=== PATIENT | male | born 1985 ===

== ENCOUNTER 2020-01-10 14:38 | Outpatient (REF) | payer MEDICARE, MEDICAID, SELFPAY ==
--- NOTE | 2020-01-10 14:46 | XR_ITS ---
EXAMINATION: XR RIBS, LEFT CLINICAL INFORMATION: Pleura diameter. COMPARISON: None TECHNIQUE: 3 views of the left ribs were obtained. Chest one view FINDINGS: CHEST: Both lungs are fairly well-expanded and clear of acute process. The heart size and pulmonary vascularity is normal. No gross bony abnormality seen. LEFT RIBS: Multiple views of left RIBS reveal no visible fracture or bony abnormality. The soft tissues are normal. On XR/XR ribs LT min 3V w CXR1V IMPRESSION: Unremarkable chest exam. Unremarkable left rib exam.
== END 2020-01-10 14:39 | disposition home or self-care (01) ==
LOC: HO.HMGCX 14:38
PROVIDERS: PCP Internal Medicine; Visit Provider Hospitalist
DX: R07.81 Pleurodynia (principal)
CPT/HCPCS: 71101

== ENCOUNTER 2020-01-18 13:34 | Outpatient (REF) | payer MEDICARE, MEDICAID, SELFPAY ==
[2020-01-18 16:43] LABS: Hematocrit 37.7 % (42-52); Hemoglobin 12.1 g/dl (14.0-18.0)
[2020-01-18 16:58] LABS: Anion Gap 11 (12-20); Blood Urea Nitrogen 9 mg/dL (9-16); Calcium 9.2 mg/dL (8.4-10.2); Carbon Dioxide 27 mmol/L (22-29); Chloride 107 mmol/L (96-108); Estimated Glomerular Filt Rate > 60; Glucose Random 90 mg/dL (60-115); Potassium 4.4 mmol/l (3.3-5.1); Sodium 141 mmol/L (135-145)
[2020-01-18 17:19] LABS: TSH reflex Free T4 < 0.01 mIU/mL (0.32-4.0)
[2020-01-18 17:51] LABS: Free T4 (Free Thyroxine) 2.94 ng/dL (0.71-1.85)
[2020-01-19 20:07] LABS: LDL Cholesterol Direct 35 mg/dL (<100)
== END 2020-01-18 13:35 | disposition home or self-care (01) ==
LOC: HO.HMGCLDS 13:34
PROVIDERS: PCP Internal Medicine; Visit Provider Internal Medicine
DX: N32.9 Bladder disorder, unspecified (principal)
CPT/HCPCS: 36415; 80048; 83721; 84439; 84443; 85014; 85018

== ENCOUNTER 2020-02-21 14:45 | Outpatient (REF) | payer MEDICARE, MEDICAID, SELFPAY ==
[2020-02-21 16:38] LABS: MANUAL DIFF FLAG NO
[2020-02-21 16:39] LABS: Basophils Percent Auto 0.2 % (0-2); Eosinophils Percent Auto 0.8 % (0-4); Hemoglobin 13.1 g/dl (14.0-18.0); Lymphocytes Absolute Auto 1.4 X10*3/uL (1.2-4.9); Lymphocytes Percent Auto 26.9 % (20-40); Mean Corpuscular HGB Conc 32.8 g/dl (31.0-36.0); Mean Corpuscular Hemoglobin 26.5 pg (27.0-33.0); Mean Platelet Volume 11.1 fL (9.4-12.4); Monocytes Absolute Auto 0.6 X10*3/uL (0.1-1.2); Monocytes Percent Auto 12.3 % (2-11); Neutrophils Percent Auto 59.8 % (45-73); Platelet Count 188 X10*3/uL (160-400); Red Blood Count 4.94 X10*6/uL (4.60-5.80); White Blood Count 5.1 X10*3/uL (4.8-10.8)
[2020-02-21 17:02] LABS: Alanine Aminotransferase 32 U/L (0-40); Alkaline Phosphatase 111 U/L (39-117); Aspartate Amino Transferase 24 U/L (5-37); Bilirubin Direct 0.4 mg/dL (0.0-0.5); Bilirubin Total 1.1 mg/dL (0.0-1.0); Total Protein 6.9 g/dL (6.5-8.0)
[2020-02-21 17:23] LABS: Free T4 (Free Thyroxine) 3.28 ng/dL (0.71-1.85); Thyroid Stimulating Hormone < 0.01 uIU/mL (0.32-4.0)
[2020-02-22 11:17] LABS: Thyroglobulin Antibodies 2 IU/mL (< or = 1)
[2020-02-22 11:41] LABS: Triiodothyronine T3 Total 759 ng/dL (76-181)
[2020-02-23 09:12] LABS: Thyroid Peroxidase Antibodies >900 IU/mL (<9)
[2020-02-24 19:58] LABS: Thyrotropin Receptor Antibody 35.94 IU/L (<=2.00)
[2020-02-25 16:13] LABS: Thyroid Stimulating Immunoglob 475 % baseline (<140)
== END 2020-02-21 14:46 | disposition home or self-care (01) ==
LOC: HO.LAB 14:45
PROVIDERS: PCP Internal Medicine; Referring Provider Internal Medicine; Visit Provider Internal Medicine Endocrinology, Diabetes & Metabolism
DX: E05.90 Thyrotoxicosis, unspecified without thyrotoxic crisis or storm (principal)
CPT/HCPCS: 36415; 80076; 83520; 84439; 84443; 84445; 84480; 85025; 86376; 86800; 99202

== ENCOUNTER 2020-03-07 14:12 | Outpatient (REF) | payer MEDICARE, MEDICAID, SELFPAY ==
--- NOTE | 2020-03-07 14:16 | US_ITS ---
EXAMINATION: US THYROID CLINICAL INFORMATION: Thyrotoxicosis, unspecified without thyrotoxic crisis or storm. COMPARISON: None TECHNIQUE: Linear transducer chacon-scale and color Doppler examination with attention to the region of the thyroid. FINDINGS: SIZE: Measurements of the thyroid lobes and nodules are given in sagittal, anteroposterior and transverse dimensions respectively. Right Thyroid Lobe: 5.93 x 2.75 x 2.15 cm, volume 18.4 mL. Parenchyma: The gland echotexture is heterogeneous. Thyroid vascularity is increased. Left Thyroid Lobe: 5.98 x 3.04 x 2.62 cm, volume 24.9 mL. Parenchyma: The gland echotexture is heterogeneous. Thyroid vascularity is increased. Isthmus: 1.17 cm in maximum AP dimension. RIGHT THYROID LOBE: No nodules. ISTHMUS: No nodules. LEFT THYROID LOBE: There is 1 nodule seen. 1. Location: Middle. Size: 2.6 x 1.7 x 1.7 cm. Nodule characteristics: Hyperechoic, smoothly marginated with intranodular flow. NODES: No lymphadenopathy is seen in the tissue surrounding the thyroid gland. US/US thyroid IMPRESSION: Heterogenous enlarged hypervascular thyroid gland. Solitary hypervascular nodule measuring 2.6 cm. Based on KATHY criteria this is suspicious and a fine-needle biopsy is recommended when thyrotoxicosis crisis has been settled down.
== END 2020-03-07 14:13 | disposition home or self-care (01) ==
LOC: HO.HMGCX 14:12
PROVIDERS: PCP Internal Medicine; Visit Provider Internal Medicine Endocrinology, Diabetes & Metabolism
DX: E05.90 Thyrotoxicosis, unspecified without thyrotoxic crisis or storm (principal)
CPT/HCPCS: 76536

== ENCOUNTER 2020-03-17 14:09 | Outpatient (REF) | payer MEDICARE, MEDICAID, SELFPAY ==
[2020-03-17 16:29] LABS: MANUAL DIFF FLAG NO
[2020-03-17 16:31] LABS: Basophils Percent Auto 0.3 % (0-2); Eosinophils Absolute Auto 0.1 X10*3/uL (0.0-0.4); Eosinophils Percent Auto 1.5 % (0-4); Hematocrit 41.7 % (42-52); Hemoglobin 13.4 g/dl (14.0-18.0); Imm Gran Abs Auto 0.01 X10*3/uL (0.00-0.03); Imm Gran Pct Auto 0.2 % (0.0-0.4); Lymphocytes Absolute Auto 1.8 X10*3/uL (1.2-4.9); Lymphocytes Percent Auto 30.3 % (20-40); Mean Corpuscular HGB Conc 32.1 g/dl (31.0-36.0); Mean Corpuscular Hemoglobin 26.6 pg (27.0-33.0); Mean Corpuscular Volume 82.7 fL (80-98); Mean Platelet Volume 11.6 fL (9.4-12.4); Monocytes Absolute Auto 0.4 X10*3/uL (0.1-1.2); Monocytes Percent Auto 6.2 % (2-11); Neutrophils Absolute Auto 3.7 X10*3/uL (2.0-8.3); Neutrophils Percent Auto 61.5 % (45-73); Platelet Count 220 X10*3/uL (160-400); Red Blood Count 5.04 X10*6/uL (4.60-5.80); Red Cell Distribution Width 14.2 % (11.0-16.0)
[2020-03-17 16:50] LABS: Alanine Aminotransferase 44 U/L (0-40); Albumin Level 4.2 g/dL (3.5-5.0); Alkaline Phosphatase 104 U/L (39-117); Aspartate Amino Transferase 28 U/L (5-37); Bilirubin Direct 0.3 mg/dL (0.0-0.5); Bilirubin Total 0.6 mg/dL (0.0-1.0); Total Protein 7.2 g/dL (6.5-8.0)
[2020-03-17 17:11] LABS: Free T4 (Free Thyroxine) 0.73 ng/dL (0.71-1.85); Thyroid Stimulating Hormone < 0.01 uIU/mL (0.32-4.0)
[2020-03-19 02:17] LABS: Triiodothyronine T3 Total 187 ng/dL (76-181)
== END 2020-03-17 14:10 | disposition home or self-care (01) ==
LOC: HO.HMGCLDS 14:09
PROVIDERS: PCP Internal Medicine; Visit Provider Internal Medicine Endocrinology, Diabetes & Metabolism
DX: E05.90 Thyrotoxicosis, unspecified without thyrotoxic crisis or storm (principal)
CPT/HCPCS: 36415; 80076; 84439; 84443; 84480; 85025

== ENCOUNTER → 2020-04-05 10:42 | Outpatient (REF) | payer MEDICARE, MEDICAID, SELFPAY ==
--- NOTE | 2020-04-05 10:42 | NM_ITS ---
EXAMINATION: THYROID UPTAKE AND SCAN CLINICAL INFORMATION: Thyrotoxicosis. COMPARISON: No previous radionuclide thyroid scan is available for comparison. Thyroid ultrasound dated 03/07/2020 is available for comparison. TECHNIQUE: Following the oral administration of 269 microcuries of I-123 sodium iodide, thyroid uptake was performed and expressed as a percentage of the administrated dose. Gamma scintillation camera images of the thyroid in the anterior and right and left anterior oblique views were obtained using a pinhole collimator following the administration of 10 mCi Tc-99m pertechnetate. FINDINGS: The uptake is 53.7% at 4 hours and 39.8% at 24 hours (Normal radioiodine uptake at 24 hours is 10% to 30%). The radioiodine uptake is moderately elevated. The 4 hour uptake measurement is significantly higher than the 24-hour uptake, and this is evidence of rapid turnover of radioiodine in the thyroid gland. The radiopertechnetate thyroid scintigram demonstrates the thyroid gland to be mildly to moderately enlarged, approximately 2 times normal in size.. There is an ovoid shaped focus of markedly diminished and almost absent activity at the junction of the middle and inferior thirds of the left lobe, and this is located somewhat laterally. No other focal abnormalities are present. The overall trapping function is markedly increased. A faint midline pyramidal lobe is visualized. A single anterior radioiodine image obtained at the time of the 24-hour uptake measurement is similar to the radio pertechnetate image. When compared to the ultrasound study dated 03/07/2020, the focal defect described above on these images in the lateral aspect of the left lobe corresponds well to the 2.6 x 1.7 x 1.7 cm nodule at this site visualized on the ultrasound exam. NM/NM thyroid w uptake IMPRESSION: 1. Mildly to moderately enlarged diffuse toxic goiter of Graves' disease. The radioiodine uptake is moderately elevated and demonstrates rapid turnover of radioiodine in the thyroid gland. 2. A solitary hypofunctioning (cold) nodule is present laterally at the junction of the middle and inferior thirds of the left thyroid lobe. This corresponds to a solid hypervascular nodule on the 03/07/2020 thyroid ultrasound and is suspicious for malignancy. Ultrasound-guided fine-needle aspirate of this nodule is recommended.
== END ==
LOC: HO.NUCMED 10:42
PROVIDERS: Visit Provider Internal Medicine Endocrinology, Diabetes & Metabolism
DX: E05.90 Thyrotoxicosis, unspecified without thyrotoxic crisis or storm (principal)
CPT/HCPCS: 78014; A9512; A9516

== ENCOUNTER 2020-04-18 09:19 | Outpatient (REF) | payer MEDICARE, MEDICAID, SELFPAY ==
[2020-04-18 11:13] LABS: MANUAL DIFF FLAG NO
[2020-04-18 11:26] LABS: Basophils Percent Auto 0.4 % (0-2); Eosinophils Absolute Auto 0.1 X10*3/uL (0.0-0.4); Eosinophils Percent Auto 1.6 % (0-4); Hematocrit 42.4 % (42-52); Hemoglobin 13.2 g/dl (14.0-18.0); Imm Gran Abs Auto 0.02 X10*3/uL (0.00-0.03); Imm Gran Pct Auto 0.4 % (0.0-0.4); Lymphocytes Absolute Auto 1.6 X10*3/uL (1.2-4.9); Lymphocytes Percent Auto 28.6 % (20-40); Mean Corpuscular HGB Conc 31.1 g/dl (31.0-36.0); Mean Corpuscular Hemoglobin 26.8 pg (27.0-33.0); Mean Platelet Volume 11.1 fL (9.4-12.4); Monocytes Absolute Auto 0.4 X10*3/uL (0.1-1.2); Monocytes Percent Auto 7.5 % (2-11); Neutrophils Absolute Auto 3.5 X10*3/uL (2.0-8.3); Neutrophils Percent Auto 61.5 % (45-73); Platelet Count 180 X10*3/uL (160-400); Red Blood Count 4.93 X10*6/uL (4.60-5.80); Red Cell Distribution Width 16.2 % (11.0-16.0); White Blood Count 5.6 X10*3/uL (4.8-10.8)
[2020-04-18 11:48] LABS: Alanine Aminotransferase 39 U/L (0-40); Albumin Level 3.9 g/dL (3.5-5.0); Alkaline Phosphatase 128 U/L (39-117); Aspartate Amino Transferase 27 U/L (5-37); Bilirubin Direct < 0.2 mg/dL (0.0-0.5); Bilirubin Total 0.3 mg/dL (0.0-1.0); Total Protein 6.9 g/dL (6.5-8.0)
[2020-04-18 12:14] LABS: Free T4 (Free Thyroxine) 0.55 ng/dL (0.71-1.85)
[2020-04-19 07:58] LABS: Triiodothyronine T3 Total 101 ng/dL (76-181)
== END 2020-04-18 09:20 | disposition home or self-care (01) ==
LOC: HO.HMGCLDS 09:19
PROVIDERS: PCP Internal Medicine; Visit Provider Internal Medicine Endocrinology, Diabetes & Metabolism
DX: E05.90 Thyrotoxicosis, unspecified without thyrotoxic crisis or storm (principal)
CPT/HCPCS: 36415; 80076; 84439; 84480; 85025

== ENCOUNTER → 2020-04-21 14:32 | Outpatient (BNVA) | payer MEDICARE, MEDICAID, SELFPAY | PROVIDERS: PCP Internal Medicine; Visit Provider Internal Medicine Endocrinology, Diabetes & Metabolism | DX: Z76.89 Persons encountering health services in other specified circumstances (principal) | CPT/HCPCS: Q3014 ==

== ENCOUNTER 2020-05-04 15:03 | Outpatient (REF) | payer MEDICARE, MEDICAID, SELFPAY ==
[2020-05-04 17:15] LABS: Free T4 (Free Thyroxine) 0.62 ng/dL (0.71-1.85); Thyroid Stimulating Hormone < 0.01 uIU/mL (0.32-4.0); Vitamin D 25-OH Total 11.6 ng/mL (>30)
[2020-05-05 03:41] LABS: Triiodothyronine T3 Total 159 ng/dL (76-181)
[2020-05-11 12:52] LABS: FT4 by Equilib. Dialysis 0.9 ng/dL (0.9-2.2)
== END 2020-05-04 15:04 | disposition home or self-care (01) ==
LOC: HO.HMGCLDS 15:03
PROVIDERS: PCP Internal Medicine; Visit Provider Internal Medicine Endocrinology, Diabetes & Metabolism
DX: E05.00 Thyrotoxicosis with diffuse goiter without thyrotoxic crisis or storm (principal)
CPT/HCPCS: 36415; 82306; 84439; 84443; 84480

== ENCOUNTER 2020-06-13 15:27 | Outpatient (REF) | payer MEDICARE, MEDICAID, SELFPAY ==
[2020-06-13 16:55] LABS: Free T4 (Free Thyroxine) 0.83 ng/dL (0.71-1.85); Thyroid Stimulating Hormone < 0.01 uIU/mL (0.32-4.0)
[2020-06-14 07:46] LABS: Triiodothyronine T3 Total 128 ng/dL (76-181)
== END 2020-06-13 15:28 | disposition home or self-care (01) ==
LOC: HO.LAB 15:27
PROVIDERS: PCP Internal Medicine; Visit Provider Internal Medicine Endocrinology, Diabetes & Metabolism
DX: E04.1 Nontoxic single thyroid nodule (principal)
CPT/HCPCS: 36415; 84439; 84443; 84480

== ENCOUNTER 2020-06-15 10:51 | Outpatient (REF) | payer MEDICARE, MEDICAID, SELFPAY ==
--- NOTE | 2020-06-15 11:20 | PM.OP ---
Brief Operative Note Date of Service: 06/15/20 Pre-op diagnosis: GRAVES DISEASE WITH A LEFT DOMINANT COLD NODULE. Post-op diagnosis: same Procedure: This procedure was explained to the patient. Alternatives, risks and benefits were discussed. Written consent was obtained. After sterile preparation of the skin, fine-needle aspiration biopsy of left thyroid nodule size 2.6 X 1.7 X 1.7 CM was performed under direct ultrasound guidance to confirm accurate needle placement. Three passes were performed with 27 gauge needles. Sample was submitted to cytology, initial cytology reading was adequate. 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 Patient tolerated procedure well. Aftercare instructions were provided. Impression: uncomplicated fine-needle aspiration biopsy of left thyroid nodule under direct ultrasound guidance. Surgeon: Berenice Garces MD FACE Anesthesia: local (LIDOCAINE 1 % 1 ML) Estimated blood loss (mL): 0 Condition: stable Disposition: same day
[2020-06-15] MEDS: Lidocaine HCl 1 % MPF 5 ML VIAL SUBCUT (11:30)
== END 2020-06-15 10:52 | disposition home or self-care (01) ==
LOC: HO.US 10:51
PROVIDERS: Visit Provider Internal Medicine Endocrinology, Diabetes & Metabolism
DX: E04.1 Nontoxic single thyroid nodule (principal)
CPT/HCPCS: 10005; 88172; 88173

== ENCOUNTER → 2020-06-29 11:40 | Outpatient (BNVA) | payer MEDICARE, MEDICAID, SELFPAY | PROVIDERS: PCP Internal Medicine; Visit Provider Internal Medicine Endocrinology, Diabetes & Metabolism | DX: Z13.89 Encounter for screening for other disorder (principal) | CPT/HCPCS: Q3014 ==

== ENCOUNTER 2020-07-12 15:00 | Outpatient (REF) | payer MEDICARE, MEDICAID, SELFPAY ==
[2020-07-12 17:28] LABS: Free T4 (Free Thyroxine) 0.44 ng/dL (0.71-1.85); Thyroid Stimulating Hormone 3.39 uIU/mL (0.32-4.0)
[2020-07-13 03:57] LABS: Triiodothyronine T3 Total 90 ng/dL (76-181)
== END 2020-07-12 15:01 | disposition home or self-care (01) ==
LOC: HO.HMGCLDS 15:00
PROVIDERS: PCP Internal Medicine; Visit Provider Internal Medicine Endocrinology, Diabetes & Metabolism
DX: E05.00 Thyrotoxicosis with diffuse goiter without thyrotoxic crisis or storm (principal)
CPT/HCPCS: 36415; 84439; 84443; 84480

== ENCOUNTER 2020-08-31 11:07 | Outpatient (REF) | payer MEDICARE, MEDICAID, SELFPAY ==
[2020-08-31 14:38] LABS: Free T4 (Free Thyroxine) 0.45 ng/dL (0.71-1.85); Thyroid Stimulating Hormone 5.82 uIU/mL (0.32-4.0)
[2020-09-01 04:57] LABS: Triiodothyronine T3 Free 2.4 pg/mL (2.3-4.2)
== END 2020-08-31 11:08 | disposition home or self-care (01) ==
LOC: HO.HMGCLDS 11:07
PROVIDERS: PCP Internal Medicine; Visit Provider Surgery
DX: E05.00 Thyrotoxicosis with diffuse goiter without thyrotoxic crisis or storm (principal)
CPT/HCPCS: 36415; 82310; 84439; 84443; 84481

== ENCOUNTER → 2020-09-08 08:24 | Outpatient (BNVA) | payer MEDICARE, MEDICAID, SELFPAY | PROVIDERS: PCP Internal Medicine; Visit Provider Internal Medicine Endocrinology, Diabetes & Metabolism | CPT/HCPCS: Q3014 ==

== ENCOUNTER 2020-11-27 12:42 | Outpatient (REF) | payer MEDICARE, MEDICAID, SELFPAY ==
[2020-11-27 14:48] LABS: Thyroid Stimulating Hormone 27.94 uIU/mL (0.32-4.0)
[2020-11-27 14:51] LABS: Albumin Level 4.3 g/dL (3.5-5.0); Calcium 8.9 mg/dL (8.4-10.2); Phosphorus 2.5 mg/dL (2.7-4.5)
[2020-11-30 10:52] LABS: PTHI 78 pg/mL (14-64)
== END 2020-11-27 12:43 | disposition home or self-care (01) ==
LOC: HO.HMGCLDS 12:42
PROVIDERS: PCP Internal Medicine; Visit Provider Internal Medicine
DX: E05.90 Thyrotoxicosis, unspecified without thyrotoxic crisis or storm (principal); E55.9 Vitamin D deficiency, unspecified
CPT/HCPCS: 36415; 82040; 82306; 82310; 83970; 84100; 84439; 84443

== ENCOUNTER → 2020-12-27 09:14 | Outpatient (BNVA) | payer MEDICARE, MEDICAID, SELFPAY | PROVIDERS: PCP Internal Medicine; Visit Provider Internal Medicine | DX: E89.0 Postprocedural hypothyroidism (principal); E55.9 Vitamin D deficiency, unspecified; E21.3 Hyperparathyroidism, unspecified | CPT/HCPCS: Q3014 ==

== ENCOUNTER 2021-03-15 13:09 | Outpatient (REF) | payer MEDICARE, MEDICAID, SELFPAY ==
[2021-03-15 16:57] LABS: Alanine Aminotransferase 22 U/L (0-40); Albumin Level 4.4 g/dL (3.5-5.0); Alkaline Phosphatase 70 U/L (39-117); Anion Gap 11 (12-20); Aspartate Amino Transferase 21 U/L (5-37); Bilirubin Total 0.5 mg/dL (0.0-1.0); Blood Urea Nitrogen 10 mg/dL (9-16); Calcium 9.4 mg/dL (8.4-10.2); Carbon Dioxide 27 mmol/L (22-29); Chloride 109 mmol/L (96-108); Estimated Glomerular Filt Rate > 60; Glucose Random 138 mg/dL (60-115); Phosphorus 2.5 mg/dL (2.7-4.5); Potassium 3.8 mmol/L (3.3-5.1); Sodium 143 mmol/L (135-145); Total Protein 7.4 g/dL (6.5-8.0)
[2021-03-15 17:17] LABS: Free T4 (Free Thyroxine) 0.86 ng/dL (0.71-1.85); Thyroid Stimulating Hormone 21.65 uIU/mL (0.32-4.0); Vitamin D 25-OH Total 24.4 ng/mL (>30)
[2021-03-16 12:21] LABS: Calcium (PTHI) 9.4 mg/dL (8.6-10.3); PTHI 39 pg/mL (14-64)
== END 2021-03-15 13:10 | disposition home or self-care (01) ==
LOC: HO.HMGCLDS 13:09
PROVIDERS: PCP Internal Medicine; Visit Provider Internal Medicine
DX: E21.3 Hyperparathyroidism, unspecified (principal); E55.9 Vitamin D deficiency, unspecified; E05.00 Thyrotoxicosis with diffuse goiter without thyrotoxic crisis or storm; E89.0 Postprocedural hypothyroidism
CPT/HCPCS: 36415; 80053; 82306; 83970; 84100; 84439; 84443

== ENCOUNTER 2021-05-21 15:10 | Outpatient (REF) | payer MEDICARE, MEDICAID, SELFPAY ==
[2021-05-21 17:42] LABS: Thyroid Stimulating Hormone 11.03 uIU/mL (0.32-4.0)
== END 2021-05-21 15:11 | disposition home or self-care (01) ==
LOC: HO.HMGCLDS 15:10
PROVIDERS: Visit Provider Internal Medicine
DX: E89.0 Postprocedural hypothyroidism (principal)
CPT/HCPCS: 36415; 84439; 84443

== ENCOUNTER → 2021-05-24 12:43 | Outpatient (BNVA) | payer MEDICARE, MEDICAID, SELFPAY | PROVIDERS: PCP Internal Medicine; Visit Provider Internal Medicine | DX: E89.0 Postprocedural hypothyroidism (principal); E55.9 Vitamin D deficiency, unspecified; E21.3 Hyperparathyroidism, unspecified | CPT/HCPCS: Q3014 ==

== ENCOUNTER 2021-08-21 10:23 | Outpatient (REF) | payer MEDICARE, MEDICAID, SELFPAY ==
[2021-08-21 12:23] LABS: Phosphorus 2.2 mg/dL (2.7-4.5)
[2021-08-21 12:29] LABS: Free T4 (Free Thyroxine) 1.23 ng/dL (0.71-1.85); Vitamin D 25-OH Total 29.8 ng/mL (>30)
[2021-08-22 15:47] LABS: Calcium (PTHI) 9.3 mg/dL (8.6-10.3); PTHI 63 pg/mL (16-77)
== END 2021-08-21 10:24 | disposition home or self-care (01) ==
LOC: HO.HMGCLDS 10:23
PROVIDERS: PCP Internal Medicine; Visit Provider Internal Medicine
DX: E03.9 Hypothyroidism, unspecified (principal); E21.3 Hyperparathyroidism, unspecified; E55.9 Vitamin D deficiency, unspecified
CPT/HCPCS: 36415; 82306; 83970; 84100; 84439; 84443

== ENCOUNTER 2021-11-15 13:04 | Outpatient (REF) | payer MEDICARE, MEDICAID, SELFPAY ==
[2021-11-15 15:29] LABS: Free T4 (Free Thyroxine) 1.17 ng/dL (0.71-1.85); Thyroid Stimulating Hormone 2.72 uIU/mL (0.32-4.0)
== END 2021-11-15 13:05 | disposition home or self-care (01) ==
LOC: HO.HMGCLDS 13:04
PROVIDERS: PCP Internal Medicine; Visit Provider Internal Medicine
DX: E03.9 Hypothyroidism, unspecified (principal)
CPT/HCPCS: 36415; 84439; 84443

== ENCOUNTER 2022-05-10 15:12 | Outpatient (REF) | payer MEDICARE, MEDICAID, SELFPAY ==
[2022-05-10 18:25] LABS: Free T4 (Free Thyroxine) 1.34 ng/dL (0.71-1.85); Thyroid Stimulating Hormone 1.11 uIU/mL (0.32-4.0)
== END 2022-05-10 15:13 | disposition home or self-care (01) ==
LOC: HO.HMGCLDS 15:12
PROVIDERS: Internal Medicine; Visit Provider Internal Medicine
DX: E03.9 Hypothyroidism, unspecified (principal)
CPT/HCPCS: 36415; 84439; 84443

== ENCOUNTER 2022-05-23 07:51 | Outpatient (REF) | payer MEDICARE, MEDICAID, SELFPAY ==
[2022-05-23 11:06] LABS: MANUAL DIFF FLAG NO
[2022-05-23 11:19] LABS: Basophils Percent Auto 0.8 % (0-2); Eosinophils Percent Auto 0.8 % (0-4); Hemoglobin 14.8 g/dl (14.0-18.0); Imm Gran Abs Auto 0.02 X10*3/uL (0.00-0.03); Imm Gran Pct Auto 0.4 % (0.0-0.4); Lymphocytes Absolute Auto 1.3 X10*3/uL (1.2-4.9); Lymphocytes Percent Auto 25.8 % (20-40); Mean Corpuscular HGB Conc 32.9 g/dl (31.0-36.0); Mean Corpuscular Hemoglobin 29.7 pg (27.0-33.0); Mean Corpuscular Volume 90.2 fL (80.0-98.0); Mean Platelet Volume 11.6 fL (9.4-12.4); Monocytes Absolute Auto 0.4 X10*3/uL (0.1-1.2); Monocytes Percent Auto 8.3 % (2-11); Neutrophils Absolute Auto 3.3 x10*3/uL (2.0-8.3); Neutrophils Percent Auto 63.9 % (45-73); Platelet Count 159 X10*3/uL (160-400); Red Blood Count 4.99 X10*6/uL (4.60-5.80); Red Cell Distribution Width 12.9 % (11.0-16.0); White Blood Count 5.2 X10*3/uL (4.8-10.8)
[2022-05-23 11:52] LABS: Alanine Aminotransferase 19 U/L (0-40); Albumin Level 4.1 g/dL (3.5-5.0); Alkaline Phosphatase 52 U/L (39-117); Anion Gap 12 (12-20); Aspartate Amino Transferase 22 U/L (5-37); Bilirubin Total 0.6 mg/dL (0.0-1.0); Blood Urea Nitrogen 11 mg/dL (9-16); Carbon Dioxide 25 mmol/L (22-29); Chloride 110 mmol/L (96-108); Cholesterol 184 mg/dL; Estimated Glomerular Filt Rate > 60; Glucose Fasting 99 mg/dL (60-99); HDL Cholesterol 30 mg/dL; LDL Cholesterol Calculated 128 mg/dl; Sodium 143 mmol/L (135-145); Total Protein 6.7 g/dL (6.5-8.0); Triglycerides 130 mg/dL
[2022-05-23 12:42] LABS: TSH reflex Free T4 2.46 uIU/mL (0.32-4.0)
== END 2022-05-23 07:52 | disposition home or self-care (01) ==
LOC: HO.HMGCLDS 07:51
PROVIDERS: PCP Internal Medicine; Visit Provider Internal Medicine
DX: E03.9 Hypothyroidism, unspecified (principal); M62.3 Immobility syndrome (paraplegic); R42 Dizziness and giddiness; K59.01 Slow transit constipation
CPT/HCPCS: 36415; 80053; 80061; 84443; 85025

== ENCOUNTER → 2022-09-02 13:36 | Outpatient (BNVA) | payer MEDICARE, MEDICAID, SELFPAY | PROVIDERS: PCP Internal Medicine; Visit Provider Internal Medicine | DX: E89.0 Postprocedural hypothyroidism (principal); Z79.899 Other long term (current) drug therapy | CPT/HCPCS: Q3014 ==

== ENCOUNTER 2022-11-05 11:47 | Outpatient (AMB) | payer MEDICARE, MEDICAID, SELFPAY ==
[2022-11-05 11:52] VITALS: BP 118/64; PULSE 80; O2SAT 96; BMI 25.6
--- NOTE | 2022-11-05 11:52 | A.OFFPC_ITS ---
Vital Signs 11/05/22 11:52 Height 5 ft 8 in Weight 168 lb 2 oz BMI 25.6 BP 118/64 Blood Pressure Location Rt brachial Position Sitting Pulse 80 Pulse Source Pulse Oximeter Pulse Oximetry (%) 96 Oxygen Delivery Method Room Air Intake Visit Reasons: Follow up Allergies No Known Allergies [No Known Allergies*] Allergy (Verified 11/05/22 11:52) Medication List - Last Reconciled 11/05/22 by Robbi Browne MD baclofen 20 mg PO QID 90 days cholecalciferol (vitamin D3) 50 mcg PO DAILY 30 days levothyroxine 150 mcg PO DAILY 30 days oxycodone-acetaminophen 10-325 mg 1 tab PO Q6H tadalafil 5 mg PO tamsulosin 0.4 mg PO DAILY Tobacco use date assessed: 11/05/22 Dental Screening Dental Screen Date: 11/05/22 Did you have a dental visit in the last 12 months?: Yes Did you have a dental problem in the last 6 months where you did not have access to dental care?: No Was dental information given to patient?: No HPI Follow up HPI Details Patient is 37 year male who underwent total thyroidectomy September of 2020 secondary to Graves disease Currently taking levothyroxine 50 mcg His labs revealed elevated PTH with normal calcium Patient has been discharged from endocrinology to primary care. Constipation: Still struggling with constipation he is taking Colace and Colace as needed He is to continue vitamin-D supplement as well Labs are needed order placed to be done today Patient is wheelchair-bound because of paraplegic condition. He is seeing urologist as well and taking medication through them for urinary problems Baclofen 10 mg q.i.d. for chronic back spasms Follow-up 4 months [facility] Medical History Anxiety, generalized Bladder disorder Constipation by delayed colonic transit Encounter for general adult medical examination with abnormal findings Graves disease Hyperparathyroidism Hyperthyroidism Hypothyroidism Postoperative hypothyroidism Swelling of both ankles Thyroid nodule, cold Vitamin D deficiency Surgical History Hx of needle biopsy Hx of total thyroidectomy Family History Father No problems noted. Mother No problems noted. Son No problems noted. Social History Housing: House Alcohol intake: current Alcohol intake frequency: does not drink Patient Tobacco Use Status: Never used Tobacco e-Cigarette/Vaping Use: Currently Using service: No Current occupational status: unemployed Cognitive needs: No Hearing needs: No Vision needs: Yes Questionnaire PHQ-9 Over the last 2 weeks, how often have you been bothered by any of the following problems? 1. Little interest or pleasure in doing things: not at all 2. Feeling down, depressed, or hopeless: several days 3. Trouble falling or staying asleep, or sleeping too much: several days 4. Feeling tired or having little energy: several days 5. Poor appetite or overeating: not at all 6. Feeling bad about yourself - or that you are a failure or have let yourself or your family down: not at all 7. Trouble concentrating on things, such as reading the newspaper or watching television: not at all 8. Moving or speaking so slowly that other people could have noticed. Or the op posite - being so fidgety or restless that you have been moving around a lot more than usual: not at all 9. Thoughts that you would be better off or of hurting yourself in some way: not at all Total score: 3 Depression Screening Interpretation: Negative 31688 - PHQ-9 Billing: Yes Source: Developed by Drs. Po Rivera, Tish Cowan, Jonathan Hahn and colleagues, with an educational ambar from [employer]. Thrive Questionnaire Date Thrive assessed: 11/05/22 I am a: Patient What is your living situation today?: I have a steady place to live Within the past 12 months, did the food you bought not last and you didn't have the money to get more?: Sometimes True Within the past 12 months, did you worry whether your food would run out before you got money to buy more?: Never true Do you have trouble paying for medicines?: No Do you have trouble getting transportation to medical appointments?: No Do you have trouble paying your heating and electricity bill?: Yes Do you have trouble taking care of your child, family member or friend?: Yes Do you have trouble with day-to-day activities such as bathing, preparing meals, shopping, managing finances, etc.?: Yes Are you currently unemployed and looking for a job?: Yes Are you interested in more education?: No Currently or been in a relationship where the following occur: no concerns reported AUDIT C Alcohol Use Questionnaire (AUDIT-C) 1. How often do you have a drink containing alcohol?: Never 3. How often do you have six or more drinks on one occasion?: Never Total Score: 0 Score Reviewed/Action Taken: Yes LUIS MIGUEL-7 AMB Questionnaire LUIS MIGUEL-7 Date LUIS MIGUEL - 7 assessed: 11/05/22 Source: Developed by Drs. Po Rivera, Tish Cowan, Jonathan Hahn and colleagues, with an educational ambar from [employer]. LUIS MIGUEL-7 Assessment Billing LUIS MIGUEL-7 Assessment Tool: pt declined-do not bill Review of Systems Const Denies chills and Denies fever(s) ENT Denies epistaxis and Denies nasal discharge Card Denies chest pain Resp Denies chest congestion, Denies cough and Denies hemoptysis GI Denies nausea Skin/Breast Denies rash Neuro Reports no additional complaints Psych Reports no additional complaints Endo Reports no additional complaints Physical exam (Primary Care) Vital Signs: Last Vital Signs Pulse 80 11/05/22 11:52 BP 118/64 11/05/22 11:52 Pulse Ox 96 11/05/22 11:52 Oxygen Delivery Method Room Air 11/05/22 11:52 BMI result Body Mass Index 25.6 Tobacco/Smoking Status: Tobacco use Status Tobacco use date assessed 11/05/22 11/05/22 11:56 Patient Tobacco Use Status Never used Tobacco 11/05/22 11:56 e-Cigarette/Vaping Use Currently Using 11/05/22 11:56 Depression Screening Interpretation: Negative Thrive Assessment: Date of Thrive Assessment Date Thrive assessed 11/05/22 11/05/22 12:11 Currently or been in a relationship where the following occur: no concerns reported Const General: cooperative, comfortable and no acute distress Orientation/consciousness: patient oriented x3 HENMT Head: Yes normocephalic Eyes General: appearance normal, both eyes and all related structures Neck Neck: Yes supple Resp Effort & Inspection: normal respiratory effort, no cough and no stridor Cardio Rhythm: regular rhythm Heart sounds: S1 normal heart sound present and S2 normal heart sound present Skin General skin exam: turgor normal Neuro Other: Patient is in wheelchair sitting comfortably no acute distress accompanied by his General: patient oriented x3 Extrem Right lower extremity: no edema Left lower extremity: no edema Assessment and Plan Assessment & Plan (1) Hypothyroidism (acquired): Code(s): E03.9 - Hypothyroidism, unspecified (2) Paraplegic immobility syndrome: Code(s): M62.3 - Immobility syndrome (paraplegic) (3) Hyperparathyroidism: Code(s): E21.3 - Hyperparathyroidism, unspecified (4) Vitamin D deficiency: Code(s): E55.9 - Vitamin D deficiency, unspecified (5) Constipation by delayed colonic transit: Code(s): K59.01 - Slow transit constipation (6) Urinary incontinence: Code(s): R32 - Unspecified urinary incontinence (7) Muscle spasm of back: Code(s): M62.830 - Muscle spasm of back Plan Patient is 37 year male who underwent total thyroidectomy September of 2020 secondary to Graves disease Currently taking levothyroxine 50 mcg His labs revealed elevated PTH with normal calcium Patient has been discharged from endocrinology to primary care. Constipation: Still struggling with constipation he is taking Colace and Colace as needed He is to continue vitamin-D supplement as well Labs are needed order placed to be done today Patient is wheelchair-bound because of paraplegic condition. He is seeing urologist as well and taking medication through them for urinary problems Baclofen 10 mg q.i.d. for chronic back spasms Follow-up 4 months Orders: Orders Comprehensive Met. Panel Today E03.9 - Hypothyroidism, unspecified, E21.3 - Hyperparathyroidism, unspecified, E55.9 - Vitamin D deficiency, unspecified, M62.3 - Immobility syndrome (paraplegic) TSH reflex Free T4 Today E03.9 - Hypothyroidism, unspecified, E21.3 - Hyperparathyroidism, unspecified, E55.9 - Vitamin D deficiency, unspecified, M62.3 - Immobility syndrome (paraplegic) Vitamin D 25-OH (D2 and D3) Today E03.9 - Hypothyroidism, unspecified, E21.3 - Hyperparathyroidism, unspecified, E55.9 - Vitamin D deficiency, unspecified, M62.3 - Immobility syndrome (paraplegic) Complete Blood Count Auto Diff Today E03.9 - Hypothyroidism, unspecified, E21.3 - Hyperparathyroidism, unspecified, E55.9 - Vitamin D deficiency, unspecified, M62.3 - Immobility syndrome (paraplegic) Coding Level of Care Code Est Pt Level 4 (72569) Diagnoses Hypothyroidism (acquired) E03.9 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 Hyperparathyroidism E21.3 Vitamin D deficiency E55.9 Constipation by delayed colonic transit K59.01 Urinary incontinence R32 Muscle spasm of back M62.830
== END 2022-11-05 12:08 | disposition home or self-care (01) ==
LOC: HO.HMGC 11:47
PROVIDERS: PCP Internal Medicine; Visit Provider Internal Medicine
DX: E03.9 Hypothyroidism, unspecified (principal); M62.3 Immobility syndrome (paraplegic); E21.3 Hyperparathyroidism, unspecified; E55.9 Vitamin D deficiency, unspecified; K59.01 Slow transit constipation; R32 Unspecified urinary incontinence; M62.830 Muscle spasm of back
CPT/HCPCS: 99214

== ENCOUNTER 2022-11-05 12:08 | Outpatient (REF) | payer MEDICARE, MEDICAID, SELFPAY ==
[2022-11-05 13:48] LABS: MANUAL DIFF FLAG NO
[2022-11-05 13:53] LABS: Basophils Percent Auto 0.5 % (0-2); Eosinophils Absolute Auto 0.1 X10*3/uL (0.0-0.4); Eosinophils Percent Auto 1.1 % (0-4); Hematocrit 44.9 % (42.0-52.0); Hemoglobin 14.9 g/dl (14.0-18.0); Imm Gran Abs Auto 0.02 X10*3/uL (0.00-0.03); Imm Gran Pct Auto 0.4 % (0.0-0.4); Lymphocytes Absolute Auto 1.7 X10*3/uL (1.2-4.9); Lymphocytes Percent Auto 29.4 % (20-40); Mean Corpuscular HGB Conc 33.2 g/dl (31.0-36.0); Mean Corpuscular Volume 90.5 fL (80.0-98.0); Mean Platelet Volume 11.6 fL (9.4-12.4); Monocytes Absolute Auto 0.4 X10*3/uL (0.1-1.2); Monocytes Percent Auto 7.3 % (2-11); Neutrophils Absolute Auto 3.4 x10*3/uL (2.0-8.3); Neutrophils Percent Auto 61.3 % (45-73); Platelet Count 168 X10*3/uL (160-400); Red Blood Count 4.96 X10*6/uL (4.60-5.80); Red Cell Distribution Width 12.5 % (11.0-16.0); White Blood Count 5.6 X10*3/uL (4.8-10.8)
[2022-11-05 14:27] LABS: Alanine Aminotransferase 16 U/L (0-40); Albumin Level 4.2 g/dL (3.5-5.0); Alkaline Phosphatase 54 U/L (39-117); Anion Gap 8 (12-20); Aspartate Amino Transferase 18 U/L (5-37); Bilirubin Total 0.7 mg/dL (0.0-1.0); Blood Urea Nitrogen 11 mg/dL (9-16); Carbon Dioxide 27 mmol/L (22-29); Chloride 109 mmol/L (96-108); Estimated Glomerular Filt Rate > 60; Glucose Random 84 mg/dL (60-115); Potassium 3.8 mmol/L (3.3-5.1); Sodium 140 mmol/L (135-145); Total Protein 7.2 g/dL (6.5-8.0)
[2022-11-05 15:03] LABS: TSH reflex Free T4 0.82 uIU/mL (0.32-4.0)
[2022-11-09 14:08] LABS: Vitamin D 25-OH, D2 <4 ng/mL; Vitamin D 25-OH, D3 31 ng/mL; Vitamin D 25-OH, Total 31 ng/mL (30-100)
== END 2022-11-05 12:09 | disposition home or self-care (01) ==
LOC: HO.HMGCLDS 12:08
PROVIDERS: PCP Internal Medicine; Visit Provider Internal Medicine
DX: E03.9 Hypothyroidism, unspecified (principal); E21.3 Hyperparathyroidism, unspecified; M62.3 Immobility syndrome (paraplegic); E55.9 Vitamin D deficiency, unspecified
CPT/HCPCS: 36415; 80053; 82306; 84443; 85025

== ENCOUNTER 2023-02-26 14:05 | Outpatient (AMB) | payer MEDICARE, MEDICAID, SELFPAY ==
[2023-02-26 14:20] VITALS: BP 112/72; PULSE 72; O2SAT 96
--- NOTE | 2023-02-26 14:20 | A.OFFPC_ITS ---
Vital Signs 02/26/23 14:20 Height 5 ft 8 in BMI Reason not done Patient refused/unable BP 112/72 Blood Pressure Location Rt brachial Position Sitting Pulse 72 Pulse Source Pulse Oximeter Pulse Oximetry (%) 96 Oxygen Delivery Method Room Air Intake Visit Reasons: 4 month Follow up- needs PHQ9 Allergies No Known Allergies [No Known Allergies*] Allergy (Verified 02/26/23 14:21) Medication List - Last Reconciled 02/26/23 by Robbi Browne MD baclofen 20 mg PO QID 90 days cholecalciferol (vitamin D3) 50 mcg PO DAILY 30 days levothyroxine 150 mcg PO DAILY 30 days oxycodone-acetaminophen 10-325 mg 1 tab PO Q6H tadalafil 5 mg PO tamsulosin 0.4 mg PO DAILY Tobacco use date assessed: 02/26/23 Dental Screening Dental Screen Date: 02/26/23 Did you have a dental visit in the last 12 months?: Yes Did you have a dental problem in the last 6 months where you did not have access to dental care?: No Was dental information given to patient?: Patient has dentist HPI 4 month Follow up- needs PHQ9 HPI Details Patient is 37 year male who is wheelchair-bound because of paraplegia Patient is in need of electric wheelchair, I have placed a referral for him to see a facility rehab director for assistance Patient underwent total thyroidectomy September of 2020 secondary to Graves disease Currently taking levothyroxine 50 mcg His labs revealed elevated PTH with normal calcium Patient has been discharged from endocrinology to primary care. Constipation: Still struggling with constipation he is taking Colace and Colace as needed He is to continue vitamin-D supplement as well Labs are needed before next visit in June He is seeing urologist as well and taking medication through them for urinary problems Baclofen 10 mg q.i.d. for chronic back spasms Follow-up 4 months [facility] Medical History Hyperparathyroidism Postoperative hypothyroidism Hypothyroidism Vitamin D deficiency Thyroid nodule, cold Graves disease Hyperthyroidism Encounter for general adult medical examination with abnormal findings Bladder disorder Swelling of both ankles Constipation by delayed colonic transit Anxiety, generalized Surgical History Hx of needle biopsy Hx of total thyroidectomy Family History Father No problems noted. Mother No problems noted. Son No problems noted. Social History Housing: House Alcohol intake: current Alcohol intake frequency: does not drink Patient Tobacco Use Status: Never used Tobacco e-Cigarette/Vaping Use: Currently Using service: No Current occupational status: unemployed Cognitive needs: No Hearing needs: No Vision needs: Yes Questionnaire PHQ-9 Over the last 2 weeks, how often have you been bothered by any of the following problems? 1. Little interest or pleasure in doing things: more than half the days 2. Feeling down, depressed, or hopeless: more than half the days 3. Trouble falling or staying asleep, or sleeping too much: nearly every day 4. Feeling tired or having little energy: nearly every day 5. Poor appetite or overeating: not at all 6. Feeling bad about yourself - or that you are a failure or have let yourself or your family down: several days 7. Trouble concentrating on things, such as reading the newspaper or watching television: not at all 8. Moving or speaking so slowly that other people could have noticed. Or the opposite - being so fidgety or restless that you have been moving around a lot more than usual: not at all 9. Thoughts that you would be better off or of hurting yourself in some way: not at all Total score: 11 Depression Screening Interpretation: Positive Depression Screening Follow-up: Existing condition Depression Screening Done: Yes [id number] - PHQ-9 Billing: Yes Source: Developed by Drs. Po Rivera, Tish Cowan, Jonathan Hahn and colleagues, with an educational ambar from [employer]. Thrive Questionnaire Date Thrive assessed: 02/26/23 I am a: Patient What is your living situation today?: I have a steady place to live Within the past 12 months, did the food you bought not last and you didn't have the money to get more?: Never true Within the past 12 months, did you worry whether your food would run out before you got money to buy more?: Never true Do you have trouble paying for medicines?: No Do you have trouble getting transportation to medical appointments?: No Do you have trouble paying your heating and electricity bill?: No Do you have trouble taking care of your child, family member or friend?: No Do you have trouble with day-to-day activities such as bathing, preparing meals, shopping, managing finances, etc.?: No Are you interested in more education?: Yes Please select the resources that you would like help with: None Currently or been in a relationship where the following occur: no concerns reported AUDIT C Alcohol Use Questionnaire (AUDIT-C) 1. How often do you have a drink containing alcohol?: Never 3. How often do you have six or more drinks on one occasion?: Never Total Score: 0 Score Reviewed/Action Taken: Yes LUIS MIGUEL-7 AMB Questionnaire LUIS MIGUEL-7 Date LUIS MIGUEL - 7 assessed: 11/05/22 Feeling nervous, anxious, or on edge: 3 = Nearly every day Not being able to stop or control worryin = Nearly every day Worrying too much about different things: 3 = Nearly every day Trouble relaxin = More than half the days Being so restless that it is hard to sit still: 1 = Several days Becoming easily annoyed or irritable: 2 = More than half the days Feeling afraid as if something awful might happen: 3 = Nearly every day Total LUIS MIGUEL-7 score (0-4 normal; 5-9 mild; 10-14 moderate; 15-21 severe): 17 Source: Developed by Drs. Po Rivera, Tish Cowan, Jonathan Hahn and colleagues, with an educational ambar from [employer]. LUIS MIGUEL-7 Assessment Billing LUIS MIGUEL-7 Assessment Tool: LUIS MIGUEL-7 Assessment 06385 Review of Systems Const Denies chills and Denies fever(s) ENT Denies epistaxis and Denies nasal discharge Card Denies chest pain Resp Denies chest congestion, Denies cough and Denies hemoptysis GI Denies diarrhea and Denies nausea Skin/Breast Denies rash Neuro Reports no additional complaints Psych Reports no additional complaints Endo Reports no additional complaints Physical exam (Primary Care) Vital Signs: Last Vital Signs Pulse 72 02/26/23 14:20 BP 112/72 02/26/23 14:20 Pulse Ox 96 02/26/23 14:20 Oxygen Delivery Method Room Air 02/26/23 14:20 Tobacco/Smoking Status: Tobacco use Status Tobacco use date assessed 02/26/23 02/26/23 14:23 Patient Tobacco Use Status Never used Tobacco 02/26/23 14:23 e-Cigarette/Vaping Use Currently Using 02/26/23 14:23 PHQ-9: PHQ-9 Score PHQ-9: Total score 11 02/26/23 14:49 Depression Screening Interpretation: Positive Depression Screening Follow-up: Existing condition Thrive Assessment: Date of Thrive Assessment Date Thrive assessed 02/26/23 02/26/23 14:31 Currently or been in a relationship where the following occur: no concerns reported Const General: cooperative, comfortable and no acute distress HENMT Head: Yes normocephalic Eyes General: appearance normal, both eyes and all related structures Neck Neck: Yes supple Resp Effort & Inspection: normal respiratory effort, no cough and no stridor Cardio Rhythm: regular rhythm Heart sounds: S1 normal heart sound present and S2 normal heart sound present Skin General skin exam: turgor normal Extrem Right lower extremity: no edema Left lower extremity: no edema Office Procedures Flu Questionnaire Does the patient have a severe egg allergy?: No Does the patient have severe life threatening allergies?: No Does the patient have a fever or illness today?: No Has the patient ever had Guillain-[place]der[place] Syndrome?: No Has the patient ever had any past reaction to a flu shot?: No Immunizations flu vacc [id number] 6mos up(PF) 60 mcg(15 mcgx4)/0.5 mL IM syringe Performing Provider: Robbi Browne MD [facility] Administered by: Cassidy Martin CMA on 02/26/23 14:49 Dose Route Admin Location Dispensed Lot Number Expiration Date NDC Manager Paid 0.5 mL IM Right Deltoid 0.5 mL [id number] 09/07/23 56301-325-80 Proxio VIS Given Date VIS Provided VIS Publication Date 02/26/23 Single Vaccine 20 Eligibility Eligibility Date Funding Source Not [facility] Eligible 02/26/23 Private Assessment and Plan Assessment & Plan (1) Hypothyroidism (acquired): Code(s): E03.9 - Hypothyroidism, unspecified (2) Paraplegic immobility syndrome: Code(s): M62.3 - Immobility syndrome (paraplegic) (3) Hyperparathyroidism: Code(s): E21.3 - Hyperparathyroidism, unspecified (4) Vitamin D deficiency: Code(s): E55.9 - Vitamin D deficiency, unspecified (5) Constipation by delayed colonic transit: Code(s): K59.01 - Slow transit constipation (6) Urinary incontinence: Code(s): R32 - Unspecified urinary incontinence (7) Muscle spasm of back: Code(s): M62.830 - Muscle spasm of back (8) Paraplegic spinal paralysis: Code(s): G82.20 - Paraplegia, unspecified (9) Hypothyroidism: Code(s): E03.9 - Hypothyroidism, unspecified (10) Bladder disorder: Code(s): N32.9 - Bladder disorder, unspecified Plan Patient is 37 year male who is wheelchair-bound because of paraplegia Patient is in need of electric wheelchair, I have placed a referral for him to see a facility rehab director for assistance Patient underwent total thyroidectomy September of 2020 secondary to Graves disease Currently taking levothyroxine 50 mcg His labs revealed elevated PTH with normal calcium Patient has been discharged from endocrinology to primary care. Constipation: Still struggling with constipation he is taking Colace and Colace as needed He is to continue vitamin-D supplement as well Labs are needed before next visit in June He is seeing urologist as well and taking medication through them for urinary problems Baclofen 10 mg q.i.d. for chronic back spasms Follow-up 4 months Orders: Orders Comprehensive Met. Panel 3 Months E03.9 - Hypothyroidism, unspecified, E21.3 - Hyperparathyroidism, unspecified, E55.9 - Vitamin D deficiency, unspecified, G82.20 - Paraplegia, unspecified, M62.3 - Immobility syndrome (paraplegic), M62.830 - Muscle spasm of back, N32.9 - Bladder disorder, unspecified, R32 - Unspecified urinary incontinence Influenza [id number] Immunization Today Z23 - Encounter for immunization TSH reflex Free T4 3 Months E03.9 - Hypothyroidism, unspecified, E21.3 - Hyperparathyroidism, unspecified, E55.9 - Vitamin D deficiency, unspecified, G82.20 - Paraplegia, unspecified, M62.3 - Immobility syndrome (paraplegic), M62.830 - Muscle spasm of back, N32.9 - Bladder disorder, unspecified, R32 - Unspecified urinary incontinence Complete Blood Count Auto Diff 3 Months E03.9 - Hypothyroidism, unspecified, E21.3 - Hyperparathyroidism, unspecified, E55.9 - Vitamin D deficiency, unspecified, G82.20 - Paraplegia, unspecified, M62.3 - Immobility syndrome (paraplegic), M62.830 - Muscle spasm of back, N32.9 - Bladder disorder, unspecified, R32 - Unspecified urinary incontinence LDL Cholesterol Direct 3 Months E03.9 - Hypothyroidism, unspecified, E21.3 - Hyperparathyroidism, unspecified, E55.9 - Vitamin D deficiency, unspecified, G82.20 - Paraplegia, unspecified, M62.3 - Immobility syndrome (paraplegic), M62.830 - Muscle spasm of back, N32.9 - Bladder disorder, unspecified, R32 - Unspecified urinary incontinence Referrals Physical Medicine and Rehabilitation Referral G82.20 - Paraplegia, unspecified Coding Level of Care Code Est Pt Level 4 (02078) Diagnoses Hypothyroidism (acquired) E03.9 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 Hyperparathyroidism E21.3 Vitamin D deficiency E55.9 Constipation by delayed colonic transit K59.01 Urinary incontinence R32 Muscle spasm of back M62.830 Paraplegic spinal paralysis G82.20 Hypothyroidism E03.9 Bladder disorder N32.9 Additional Codes LUIS MIGUEL-7 Assessment Billing - LUIS MIGUEL-7 Assessment Tool: LUIS MIGUEL-7 Assessment 96800 ([id number])
== END 2023-02-26 16:58 | disposition home or self-care (01) ==
PROVIDERS: PCP Internal Medicine; Visit Provider Internal Medicine
DX: E03.9 Hypothyroidism, unspecified (principal); E21.3 Hyperparathyroidism, unspecified; G82.20 Paraplegia, unspecified; Z23 Encounter for immunization; M62.3 Immobility syndrome (paraplegic); E55.9 Vitamin D deficiency, unspecified; K59.01 Slow transit constipation; R32 Unspecified urinary incontinence; M62.830 Muscle spasm of back; N32.9 Bladder disorder, unspecified
CPT/HCPCS: 90471; 90686; 99214

== ENCOUNTER 2023-07-02 15:03 | Outpatient (REF) | payer MEDICARE, MEDICAID, SELFPAY ==
[2023-07-02 16:01] LABS: MANUAL DIFF FLAG NO
[2023-07-02 16:12] LABS: Basophils Percent Auto 0.4 % (0-2); Eosinophils Absolute Auto 0.1 X10*3/uL (0.0-0.4); Eosinophils Percent Auto 1.2 % (0-4); Hematocrit 45.1 % (42.0-52.0); Imm Gran Abs Auto 0.02 X10*3/uL (0.00-0.03); Imm Gran Pct Auto 0.3 % (0.0-0.4); Lymphocytes Absolute Auto 1.8 X10*3/uL (1.2-4.9); Lymphocytes Percent Auto 25.2 % (20-40); Mean Corpuscular HGB Conc 33.3 g/dl (31.0-36.0); Mean Corpuscular Hemoglobin 30.1 pg (27.0-33.0); Mean Corpuscular Volume 90.4 fL (80.0-98.0); Mean Platelet Volume 11.6 fL (9.4-12.4); Monocytes Absolute Auto 0.6 X10*3/uL (0.1-1.2); Monocytes Percent Auto 7.6 % (2-11); Neutrophils Absolute Auto 4.7 x10*3/uL (2.0-8.3); Neutrophils Percent Auto 65.3 % (45-73); Platelet Count 167 X10*3/uL (160-400); Red Blood Count 4.99 X10*6/uL (4.60-5.80); Red Cell Distribution Width 13.1 % (11.0-16.0); White Blood Count 7.2 X10*3/uL (4.8-10.8)
[2023-07-02 16:41] LABS: Alanine Aminotransferase 32 U/L (0-40); Albumin Level 4.4 g/dL (3.5-5.0); Alkaline Phosphatase 62 U/L (39-117); Anion Gap 9 (12-20); Aspartate Amino Transferase 27 U/L (5-37); Bilirubin Total 0.3 mg/dL (0.0-1.0); Blood Urea Nitrogen 11 mg/dL (9-16); Calcium 9.5 mg/dL (8.4-10.2); Carbon Dioxide 27 mmol/L (22-29); Chloride 108 mmol/L (96-108); Estimated Glomerular Filt Rate > 60; Glucose Random 89 mg/dL (60-115); Potassium 4.1 mmol/L (3.3-5.1); Sodium 140 mmol/L (135-145); Total Protein 7.8 g/dL (6.5-8.0)
[2023-07-02 16:56] LABS: TSH reflex Free T4 5.59 uIU/mL (0.32-4.0)
[2023-07-02 18:44] LABS: Free T4 (Free Thyroxine) 1.09 ng/dL (0.71-1.85)
[2023-07-04 06:38] LABS: LDL Cholesterol Direct 121 mg/dL (<100)
== END 2023-07-02 15:04 | disposition home or self-care (01) ==
LOC: HO.HMGCLDS 15:03
PROVIDERS: PCP Internal Medicine; Visit Provider Internal Medicine
DX: E03.9 Hypothyroidism, unspecified (principal); E55.9 Vitamin D deficiency, unspecified; E21.3 Hyperparathyroidism, unspecified; M62.3 Immobility syndrome (paraplegic); R32 Unspecified urinary incontinence; M62.830 Muscle spasm of back; G82.20 Paraplegia, unspecified; N32.9 Bladder disorder, unspecified
CPT/HCPCS: 36415; 80053; 83721; 84439; 84443; 85025

== ENCOUNTER 2023-07-10 08:36 | Outpatient (AMB) | payer MEDICARE, MEDICAID, SELFPAY ==
--- NOTE | 2023-07-10 08:55 | MHC.PC.OV ---
Intake Visit Reasons: Discuss Labs~ [phone] Allergies No Known Allergies [No Known Allergies*] Allergy (Verified 07/10/23 08:55) Medication List - Last Reconciled 07/10/23 by Robbi Browne MD baclofen 20 mg PO QID 90 days cholecalciferol (vitamin D3) 50 mcg PO DAILY 30 days levothyroxine 150 mcg PO DAILY 30 days oxycodone-acetaminophen 10-325 mg 1 tab PO Q6H tadalafil 5 mg PO Tobacco use date assessed: 07/10/23 Dental Screening Dental Screen Date: 07/10/23 Did you have a dental visit in the last 12 months?: Yes Did you have a dental problem in the last 6 months where you did not have access to dental care?: No Was dental information given to patient?: Patient has dentist HPI Discuss Labs~ [phone] HPI Details Patient is a 38-year-old gentleman this is a tele medicine visit to go over his labs His TSH level came back abnormal, he is currently taking levothyroxine 150 mcg, I am increasing the dose to 175 Patient was advised to repeat labs again in 2 months He is also complaining of severe constipation in spite of taking Dulcolax and drinking more water It could be because of sub optimal TSH level, I adding MiraLax, patient was advised to add 1 capful in full glass of water 2 times a day And Senokot as tablets 2-3 at night until he starts moving his bowel and then titrate to 1 bowel movement every day We will follow-up next week on his constipation PFSH Medical History Hyperparathyroidism Postoperative hypothyroidism Hypothyroidism Vitamin D deficiency Thyroid nodule, cold Graves disease Hyperthyroidism Encounter for general adult medical examination with abnormal findings Bladder disorder Swelling of both ankles Constipation by delayed colonic transit Anxiety, generalized Surgical History Hx of needle biopsy Hx of total thyroidectomy Family History Father No problems noted. Mother No problems noted. Son No problems noted. Social History Housing: House Alcohol intake: current Alcohol intake frequency: does not drink Patient Tobacco Use Status: Never used Tobacco e-Cigarette/Vaping Use: Currently Using service: No Current occupational status: unemployed Cognitive needs: No Hearing needs: No Vision needs: Yes Questionnaire Thrive Questionnaire Date Thrive assessed: 02/26/23 AUDIT C Alcohol Use Questionnaire (AUDIT-C) 1. How often do you have a drink containing alcohol?: Never 3. How often do you have six or more drinks on one occasion?: Never Total Score: 0 Score Reviewed/Action Taken: Yes LUIS MIGUEL-7 AMB Questionnaire LUIS MIGUEL-7 Date LUIS MIGUEL - 7 assessed: 11/05/22 Source: Developed by Drs. Po Rivera, Tish Cowan, Jonathan Hahn and colleagues, with an educational ambar from [employer]. Review of Systems Const Denies chills and Denies fever(s) ENT Denies epistaxis and Denies nasal discharge Card Denies chest pain Resp Denies chest congestion, Denies cough and Denies hemoptysis GI Denies nausea Skin/Breast Denies rash Neuro Reports no additional complaints Psych Reports no additional complaints Endo Reports no additional complaints Physical exam (Primary Care) Tobacco/Smoking Status: Tobacco use Status Tobacco use date assessed 07/10/23 07/10/23 08:56 Patient Tobacco Use Status Never used Tobacco 07/10/23 08:56 e-Cigarette/Vaping Use Currently Using 07/10/23 08:56 Thrive Assessment: Date of Thrive Assessment Date Thrive assessed 02/26/23 07/10/23 08:56 Telehealth Telehealth Telehealth Platform: [facility] Location of provider rendering services: practice address Location of patient: address on file Patient Identification confirmed using: Name, : Yes Telehealth method: voice only Patient verbally consented to treatment: Yes Patient verbally consented to billing insurance company: Yes Patient informed of any privacy concerns related to visit: Yes Minutes spent on Phone/Video with Pt.: 15 Assessment and Plan Assessment & Plan (1) Postoperative hypothyroidism: Code(s): E89.0 - Postprocedural hypothyroidism (2) Constipation by delayed colonic transit: Code(s): K59.01 - Slow transit constipation (3) Paraplegic spinal paralysis: Code(s): G82.20 - Paraplegia, unspecified Plan Patient is a 38-year-old gentleman this is a tele medicine visit to go over his labs His TSH level came back abnormal, he is currently taking levothyroxine 150 mcg, I am increasing the dose to 175 Patient was advised to repeat labs again in 2 months He is also complaining of severe constipation in spite of taking Dulcolax and drinking more water It could be because of sub optimal TSH level, I adding MiraLax, patient was advised to add 1 capful in full glass of water 2 times a day And Senokot as tablets 2-3 at night until he starts moving his bowel and then titrate to 1 bowel movement every day We will follow-up next week on his constipation Medications: New sennosides-docusate sodium 8.6-50 mg (Senna Plus) 2 tab-caps (2 x 8.6-50 mg) PO BEDTIME PRN 180 caps 0RF constipation 90 days polyethylene glycol 3350 (Miralax) 17 grams PO DAILY 1,530 grams 0RF 90 days Changed From levothyroxine 150 mcg PO DAILY 30 days 90 tabs 1RF To levothyroxine 175 mcg PO DAILY 90 tabs 0RF 90 days Coding Level of Care Code Tele Est Pt Level 3 (73060) Diagnoses Postoperative hypothyroidism E89.0 Constipation by delayed colonic transit K59.01 Paraplegic spinal paralysis G82.20
== END 2023-07-10 09:51 | disposition home or self-care (01) ==
LOC: HO.HMGC 08:36
PROVIDERS: PCP Internal Medicine; Visit Provider Internal Medicine
DX: E89.0 Postprocedural hypothyroidism (principal); K59.01 Slow transit constipation; G82.20 Paraplegia, unspecified
CPT/HCPCS: 99442

== ENCOUNTER 2023-07-17 07:05 | Outpatient (AMB) | payer MEDICARE, MEDICAID, SELFPAY ==
--- NOTE | 2023-07-17 08:37 | MHC.PC.OV ---
Intake Visit Reasons: 1 Wk F/u ~ [phone] Allergies No Known Allergies [No Known Allergies*] Allergy (Verified 07/17/23 08:38) Medication List - Last Reconciled 07/17/23 by Robbi Browne MD baclofen 20 mg PO QID 90 days cholecalciferol (vitamin D3) 50 mcg PO DAILY 30 days levothyroxine 175 mcg PO DAILY 90 days oxycodone-acetaminophen 10-325 mg 1 tab PO Q6H polyethylene glycol 3350 (Miralax) 17 grams PO DAILY 90 days sennosides-docusate sodium 8.6-50 mg (Senna Plus) 2 tab-caps (2 x 8.6-50 mg) PO BEDTIME PRN 90 days Tobacco use date assessed: 07/17/23 Dental Screening Dental Screen Date: 07/17/23 Did you have a dental visit in the last 12 months?: Yes Did you have a dental problem in the last 6 months where you did not have access to dental care?: No Was dental information given to patient?: Patient has dentist HPI 1 Wk F/u ~ [phone] HPI Details Follow-up constipation I sent MiraLax and Senokot S tablets for the patient last week He said that he has tried both The only way he is able to move his bowels is if he takes 5 Dulcolax He says that even that is only once a week He is having discomfort in his lower abdomen due to constipation I have created a referral for him to see gastroenterology for further management. [facility] Medical History Hyperparathyroidism Postoperative hypothyroidism Hypothyroidism Vitamin D deficiency Thyroid nodule, cold Graves disease Hyperthyroidism Encounter for general adult medical examination with abnormal findings Bladder disorder Swelling of both ankles Constipation by delayed colonic transit Anxiety, generalized Surgical History Hx of needle biopsy Hx of total thyroidectomy Family History Father No problems noted. Mother No problems noted. Son No problems noted. Social History Housing: House Alcohol intake: current Alcohol intake frequency: does not drink Patient Tobacco Use Status: Never used Tobacco e-Cigarette/Vaping Use: Currently Using service: No Current occupational status: unemployed Cognitive needs: No Hearing needs: No Vision needs: Yes Questionnaire Thrive Questionnaire Date Thrive assessed: 02/26/23 AUDIT C Alcohol Use Questionnaire (AUDIT-C) 1. How often do you have a drink containing alcohol?: Never 3. How often do you have six or more drinks on one occasion?: Never Total Score: 0 Score Reviewed/Action Taken: Yes LUIS MIGUEL-7 AMB Questionnaire LUIS MIGUEL-7 Date LUIS MIGUEL - 7 assessed: 11/05/22 Source: Developed by Drs. Po Rivera, Tish Cowan, Jonathan Hahn and colleagues, with an educational ambar from [employer]. Review of Systems Const Denies chills and Denies fever(s) ENT Denies epistaxis and Denies nasal discharge Card Denies chest pain Resp Denies chest congestion, Denies cough and Denies hemoptysis Skin/Breast Denies rash Neuro Reports no additional complaints Psych Reports no additional complaints Endo Reports no additional complaints Physical exam (Primary Care) Tobacco/Smoking Status: Tobacco use Status Tobacco use date assessed 07/17/23 07/17/23 08:39 Patient Tobacco Use Status Never used Tobacco 07/17/23 08:39 e-Cigarette/Vaping Use Currently Using 07/17/23 08:39 Thrive Assessment: Date of Thrive Assessment Date Thrive assessed 02/26/23 07/17/23 08:39 Telehealth Telehealth Telehealth Platform: [facility] Location of provider rendering services: practice address Location of patient: address on file Patient Identification confirmed using: Name, : Yes Telehealth method: voice only Patient verbally consented to treatment: Yes Patient verbally consented to billing insurance company: Yes Patient informed of any privacy concerns related to visit: Yes Minutes spent on Phone/Video with Pt.: 13 Assessment and Plan Assessment & Plan (1) Constipation by delayed colonic transit: Code(s): K59.01 - Slow transit constipation Plan Follow-up constipation I sent MiraLax and Senokot S tablets for the patient last week He said that he has tried both The only way he is able to move his bowels is if he takes 5 Dulcolax He says that even that is only once a week He is having discomfort in his lower abdomen due to constipation I have created a referral for him to see gastroenterology for further management. Orders: Referrals Gastroenterology Referral K59.01 - Slow transit constipation Coding Level of Care Code Tele Est Pt Level 3 (91295) Diagnoses Constipation by delayed colonic transit K59.01
== END 2023-07-17 11:49 | disposition home or self-care (01) ==
LOC: HO.HMGC 07:05
PROVIDERS: PCP Internal Medicine; Visit Provider Internal Medicine
DX: K59.01 Slow transit constipation (principal)
CPT/HCPCS: 99442

== ENCOUNTER 2023-08-08 15:19 | Outpatient (AMB) | payer MEDICARE, MEDICAID, SELFPAY ==
--- NOTE | 2023-08-08 15:20 | A.OFFPC_ITS ---
Intake Visit Reasons: 2M Follow-Up Allergies No Known Allergies [No Known Allergies*] Allergy (Verified 08/08/23 15:20) Medication List - Last Reconciled 08/08/23 by Robbi Browne MD baclofen 20 mg PO QID 90 days cholecalciferol (vitamin D3) 50 mcg PO DAILY 30 days levothyroxine 175 mcg PO DAILY 90 days polyethylene glycol 3350 (Miralax) 17 grams PO DAILY 90 days sennosides-docusate sodium 8.6-50 mg (Senna Plus) 2 tab-caps (2 x 8.6-50 mg) PO BEDTIME PRN 90 days Tobacco use date assessed: 08/08/23 Dental Screening Dental Screen Date: 08/08/23 Did you have a dental visit in the last 12 months?: Yes Did you have a dental problem in the last 6 months where you did not have access to dental care?: No Was dental information given to patient?: Patient has dentist HPI 2M Follow-Up HPI Details Patient is a 38-year-old gentlemen this is a telemedicine visit Patient has immobility syndrome He suffers from severe anxiety Patient was on alprazolam at 1 point and then he was referred psych care provider for re-evaluation He has been seeing a therapist and has been waiting to see the psychiatrist 4 months Patient says that he is feeling very anxious and does not know what to do I have sent alprazolam 0.5 mg 30 tablets I will send a message to our behavior health coordinator so we can help patient further. [facility], LAT[facility] Medical History Hyperparathyroidism Postoperative hypothyroidism Hypothyroidism Vitamin D deficiency Thyroid nodule, cold Graves disease Hyperthyroidism Encounter for general adult medical examination with abnormal findings Bladder disorder Swelling of both ankles Constipation by delayed colonic transit Anxiety, generalized Surgical History Hx of needle biopsy Hx of total thyroidectomy Family History Father No problems noted. Mother No problems noted. Son No problems noted. Social History Housing: House Alcohol intake: current Alcohol intake frequency: does not drink Patient Tobacco Use Status: Never used Tobacco e-Cigarette/Vaping Use: Currently Using service: No Current occupational status: unemployed Cognitive needs: No Hearing needs: No Vision needs: Yes Questionnaire Thrive Questionnaire Date Thrive assessed: 02/26/23 AUDIT C Alcohol Use Questionnaire (AUDIT-C) 1. How often do you have a drink containing alcohol?: Never 3. How often do you have six or more drinks on one occasion?: Never Total Score: 0 Score Reviewed/Action Taken: Yes LUIS MIGUEL-7 AMB Questionnaire LUIS MIGUEL-7 Date LUIS MIGUEL - 7 assessed: 11/05/22 Source: Developed by Drs. Po Rivera, Tish Cowan, Jnoathan Hahn and colleagues, with an educational ambar from [employer]. Review of Systems Const Denies chills and Denies fever(s) ENT Denies epistaxis and Denies nasal discharge Card Denies chest pain Resp Denies chest congestion, Denies cough and Denies hemoptysis GI Denies diarrhea and Denies nausea Skin/Breast Denies rash Neuro Reports no additional complaints Psych Reports no additional complaints Endo Reports no additional complaints Physical exam (Primary Care) Tobacco/Smoking Status: Tobacco use Status Tobacco use date assessed 08/08/23 08/08/23 15:21 Patient Tobacco Use Status Never used Tobacco 08/08/23 15:21 e-Cigarette/Vaping Use Currently Using 08/08/23 15:21 Thrive Assessment: Date of Thrive Assessment Date Thrive assessed 02/26/23 08/08/23 15:21 Telehealth Telehealth Telehealth Platform: [facility] Location of provider rendering services: practice address Location of patient: address on file Patient Identification confirmed using: Name, : Yes Telehealth method: voice only Patient verbally consented to treatment: Yes Patient verbally consented to billing insurance company: Yes Patient informed of any privacy concerns related to visit: Yes Minutes spent on Phone/Video with Pt.: 13 Assessment and Plan Assessment & Plan (1) Anxiety, generalized: Code(s): F41.1 - Generalized anxiety disorder (2) Panic disorder [episodic paroxysmal anxiety]: Code(s): F41.0 - Panic disorder [episodic paroxysmal anxiety] (3) Paraplegic spinal paralysis: Code(s): G82.20 - Paraplegia, unspecified Plan Patient is a 38-year-old gentlemen this is a telemedicine visit Patient has immobility syndrome He suffers from severe anxiety Patient was on alprazolam at 1 point and then he was referred psych care provider for re-evaluation He has been seeing a therapist and has been waiting to see the psychiatrist 4 months Patient says that he is feeling very anxious and does not know what to do I have sent alprazolam 0.5 mg 30 tablets I will send a message to our behavior health coordinator so we can help patient further. Medications: New alprazolam 0.5 mg PO DAILY 30 tabs 0RF Coding Level of Care Code Tele Est Pt Level 3 (65811) Diagnoses Anxiety, generalized F41.1 Panic disorder [episodic paroxysmal anxiety] F41.0 Paraplegic spinal paralysis G82.20
== END 2023-08-08 16:02 | disposition home or self-care (01) ==
LOC: HO.HMGC 15:19
PROVIDERS: PCP Internal Medicine; Visit Provider Internal Medicine
DX: G82.20 Paraplegia, unspecified (principal); F41.1 Generalized anxiety disorder; F41.0 Panic disorder [episodic paroxysmal anxiety]
CPT/HCPCS: 99442

== ENCOUNTER 2023-12-05 09:05 | Outpatient (AMB) | payer MEDICARE, MEDICAID, SELFPAY ==
[2023-12-05 09:11] VITALS: BP 110/62; PULSE 70; O2SAT 95
--- NOTE | 2023-12-05 09:11 | A.OFFPC_ITS ---
Vital Signs 12/05/23 09:11 Height 5 ft 8 in BMI Reason not done Patient refused/unable BP 110/62 Blood Pressure Location Rt brachial Position Sitting Pulse 70 Pulse Source Pulse Oximeter Pulse Oximetry (%) 95 Oxygen Delivery Method Room Air Intake Visit Reasons: PE - see comments Allergies No Known Allergies [No Known Allergies*] Allergy (Verified 12/05/23 09:12) Medication List - Last Reconciled 12/05/23 by Robbi Browne MD alprazolam 0.5 mg PO DAILY baclofen 20 mg PO QID 90 days cholecalciferol (vitamin D3) 50 mcg PO DAILY 30 days levothyroxine 175 mcg PO DAILY 90 days polyethylene glycol 3350 (Miralax) 17 grams PO DAILY 90 days sennosides-docusate sodium 8.6-50 mg (Senna Plus) 2 tab-caps (2 x 8.6-50 mg) PO BEDTIME PRN 90 days Tobacco use date assessed: 12/05/23 Dental Screening Dental Screen Date: 12/05/23 Did you have a dental visit in the last 12 months?: Yes Did you have a dental problem in the last 6 months where you did not have access to dental care?: No Was dental information given to patient?: Patient has dentist [facility] Medical History Hyperparathyroidism Postoperative hypothyroidism Hypothyroidism Vitamin D deficiency Thyroid nodule, cold Graves disease Hyperthyroidism Encounter for general adult medical examination with abnormal findings Bladder disorder Swelling of both ankles Constipation by delayed colonic transit Anxiety, generalized Surgical History Hx of needle biopsy Hx of total thyroidectomy Family History Father No problems noted. Mother No problems noted. Son No problems noted. Social History Housing: House Alcohol intake: current Alcohol intake frequency: does not drink Patient Tobacco Use Status: Never used Tobacco e-Cigarette/Vaping Use: Currently Using service: No Current occupational status: unemployed Cognitive needs: No Hearing needs: No Vision needs: Yes Questionnaire PHQ-9 Over the last 2 weeks, how often have you been bothered by any of the following problems? 1. Little interest or pleasure in doing things: not at all 2. Feeling down, depressed, or hopeless: not at all 3. Trouble falling or staying asleep, or sleeping too much: several days 4. Feeling tired or having little energy: several days 5. Poor appetite or overeating: not at all 6. Feeling bad about yourself - or that you are a failure or have let yourself or your family down: not at all 7. Trouble concentrating on things, such as reading the newspaper or watching television: not at all 8. Moving or speaking so slowly that other people could have noticed. Or the opposite - being so fidgety or restless that you have been moving around a lot more than usual: not at all 9. Thoughts that you would be better off or of hurting yourself in some way: not at all Total score: 2 Depression Screening Interpretation: Negative Depression Screening Done: Yes 82787 - PHQ-9 Billing: Yes Source: Developed by Drs. Po Rivera, Tish Cowan, Jonathan Hahn and colleagues, with an educational ambar from [employer]. Thrive Questionnaire Date Thrive assessed: 12/05/23 I am a: Patient What is your living situation today?: I have a steady place to live Within the past 12 months, did the food you bought not last and you didn't have the money to get more?: Sometimes True Within the past 12 months, did you worry whether your food would run out before you got money to buy more?: Sometimes True Do you have trouble paying for medicines?: No Do you have trouble getting transportation to medical appointments?: Yes Do you have trouble paying your heating and electricity bill?: Yes Do you have trouble taking care of your child, family member or friend?: No Do you have trouble with day-to-day activities such as bathing, preparing meals, shopping, managing finances, etc.?: No Are you currently unemployed and looking for a job?: No Are you interested in more education?: No Please select the resources that you would like help with: Utilities Currently or been in a relationship where the following occur: I choose not to answer THRIVE Score: 4 AUDIT C Alcohol Use Questionnaire (AUDIT-C) 1. How often do you have a drink containing alcohol?: Never 3. How often do you have six or more drinks on one occasion?: Never Total Score: 0 Score Reviewed/Action Taken: Yes LUIS MIGUEL-7 AMB Questionnaire LUIS MIGUEL-7 Date LUIS MIGUEL - 7 assessed: 12/05/23 Feeling nervous, anxious, or on edge: 0 = Not at all Not being able to stop or control worryin = Not at all Worrying too much about different things: 0 = Not at all Trouble relaxin = Not at all Being so restless that it is hard to sit still: 0 = Not at all Becoming easily annoyed or irritable: 0 = Not at all Feeling afraid as if something awful might happen: 0 = Not at all Total LUIS MIGUEL-7 score (0-4 normal; 5-9 mild; 10-14 moderate; 15-21 severe): 0 Source: Developed by Drs. Po Rivera, Tish Cowan, Jonathan Hahn and colleagues, with an educational ambar from [employer]. LUIS MIGUEL-7 Assessment Billing LUIS MIGUEL-7 Assessment Tool: LUIS MIGUEL-7 Assessment 82294 Physical exam (Primary Care) Tobacco/Smoking Status: Tobacco use Status Tobacco use date assessed 08/08/23 08/08/23 15:21 Patient Tobacco Use Status Never used Tobacco 08/08/23 15:21 e-Cigarette/Vaping Use Currently Using 08/08/23 15:21 Depression Screening Interpretation: Negative Thrive Assessment: Date of Thrive Assessment Date Thrive assessed 11/07/23 11/07/23 12:29 Currently or been in a relationship where the following occur: I choose not to answer Coding Additional Codes LUIS MIGUEL-7 Assessment Billing - LUIS MIGUEL-7 Assessment Tool: LUIS MIGUEL-7 Assessment [id number] ([id number])
--- NOTE | 2023-12-05 09:11 | A.OFFPC_ITS ---
Vital Signs 12/05/23 09:11 Height 5 ft 8 in BMI Reason not done Patient refused/unable BP 110/62 Blood Pressure Location Rt brachial Position Sitting Pulse 70 Pulse Source Pulse Oximeter Pulse Oximetry (%) 95 Oxygen Delivery Method Room Air Intake Visit Reasons: PE - see comments Allergies No Known Allergies [No Known Allergies*] Allergy (Verified 12/05/23 09:12) Medication List - Last Reconciled 12/05/23 by Robbi Browne MD alprazolam 0.5 mg PO DAILY baclofen 20 mg PO QID 90 days cholecalciferol (vitamin D3) 50 mcg PO DAILY 30 days levothyroxine 175 mcg PO DAILY 90 days polyethylene glycol 3350 (Miralax) 17 grams PO DAILY 90 days sennosides-docusate sodium 8.6-50 mg (Senna Plus) 2 tab-caps (2 x 8.6-50 mg) PO BEDTIME PRN 90 days Tobacco use date assessed: 08/08/23 Dental Screening Dental Screen Date: 08/08/23 HPI PE - see comments HPI Details Patient is a 38-year-old gentleman came in for physical exam Patient is on wheelchair Due for labs Medication list reviewed Complaining of difficulty hearing, on examination his right ear is within normal limit Left ear has excessive back, that was irrigated with good result He underwent total thyroidectomy September of 2020 secondary to Graves disease Currently taking levothyroxine 175 mcg His labs revealed elevated PTH with normal calcium Patient has been discharged from endocrinology to primary care. Constipation: Still struggling with constipation he is taking Colace and Colace as needed He is to continue vitamin-D supplement as well Patient is wheelchair-bound because of paraplegic condition. Urine incontinence: Has been evaluated by urologist Baclofen 10 mg q.i.d. for chronic back spasms Follow-up 3 months [facility] Medical History Hyperparathyroidism Postoperative hypothyroidism Hypothyroidism Vitamin D deficiency Thyroid nodule, cold Graves disease Hyperthyroidism Encounter for general adult medical examination with abnormal findings Bladder disorder Swelling of both ankles Constipation by delayed colonic transit Anxiety, generalized Surgical History Hx of needle biopsy Hx of total thyroidectomy Family History Father No problems noted. Mother No problems noted. Son No problems noted. Social History Housing: House Alcohol intake: current Alcohol intake frequency: does not drink Patient Tobacco Use Status: Never used Tobacco e-Cigarette/Vaping Use: Currently Using service: No Current occupational status: unemployed Cognitive needs: No Hearing needs: No Vision needs: Yes Questionnaire PHQ-9 Over the last 2 weeks, how often have you been bothered by any of the following problems? 1. Little interest or pleasure in doing things: not at all 2. Feeling down, depressed, or hopeless: not at all 3. Trouble falling or staying asleep, or sleeping too much: several days 4. Feeling tired or having little energy: several days 5. Poor appetite or overeating: not at all 6. Feeling bad about yourself - or that you are a failure or have let yourself or your family down: not at all 7. Trouble concentrating on things, such as reading the newspaper or watching television: not at all 8. Moving or speaking so slowly that other people could have noticed. Or the opposite - being so fidgety or restless that you have been moving around a lot more than usual: not at all 9. Thoughts that you would be better off or of hurting yourself in some way: not at all Total score: 2 Depression Screening Interpretation: Negative Depression Screening Done: Yes 48609 - PHQ-9 Billing: Yes Source: Developed by Drs. Po Rivera, Tish Cowan, Jonathan Hahn and colleagues, with an educational ambar from [email or web address]. Thrive Questionnaire Date Thrive assessed: 11/07/23 I am a: Patient What is your living situation today?: I have a steady place to live Within the past 12 months, did the food you bought not last and you didn't have the money to get more?: Sometimes True Within the past 12 months, did you worry whether your food would run out before you got money to buy more?: Sometimes True Do you have trouble paying for medicines?: No Do you have trouble getting transportation to medical appointments?: Yes Do you have trouble paying your heating and electricity bill?: Yes Do you have trouble taking care of your child, family member or friend?: No Do you have trouble with day-to-day activities such as bathing, preparing meals, shopping, managing finances, etc.?: No Are you currently unemployed and looking for a job?: No Are you interested in more education?: No Please select the resources that you would like help with: Utilities Currently or been in a relationship where the following occur: I choose not to answer THRIVE Score: 4 LUIS MIGUEL-7 AMB Questionnaire LUIS MIGUEL-7 Date LUIS MIGUEL - 7 assessed: 11/05/22 Source: Developed by Drs. Po Rivera, Tish Cowan, Jonathan Hahn and colleagues, with an educational ambar from [email or web address]. Review of Systems Const Denies chills, Denies fever(s) and Denies headache(s) Eyes Denies blurry vision ENT Denies headache(s), Denies nasal discharge, Denies nasal obstruction, Denies odynophagia and Denies sinus pain Card Denies chest pain at rest and Denies chest pain with activity Resp Denies cough and Denies hemoptysis GI Denies diarrhea, Denies odynophagia, Denies vomiting and Denies hematemesis Reports as per HPI Skin/Breast Reports as per HPI Neuro Denies Abnormal speech present and Denies headache(s) Psych Denies mood swings and Denies paranoia Endo Reports as per HPI Luca/Lymph Reports as per HPI Aller/Immun Reports as per HPI Physical exam (Primary Care) Vital Signs: Last Vital Signs Pulse 70 12/05/23 09:11 BP 110/62 12/05/23 09:11 Pulse Ox 95 12/05/23 09:11 Oxygen Delivery Method Room Air 12/05/23 09:11 Tobacco/Smoking Status: Tobacco use Status Tobacco use date assessed 08/08/23 12/05/23 09:16 Patient Tobacco Use Status Never used Tobacco 12/05/23 09:16 e-Cigarette/Vaping Use Currently Using 12/05/23 09:16 PHQ-9: PHQ-9 Score PHQ-9: Total score 2 12/05/23 09:31 Depression Screening Interpretation: Negative Thrive Assessment: Date of Thrive Assessment Date Thrive assessed 11/07/23 12/05/23 09:16 Currently or been in a relationship where the following occur: I choose not to answer Const General: cooperative, comfortable and no acute distress Orientation/consciousness: patient oriented x3 HENMT Head: Yes normocephalic and Yes atraumatic Eyes General: appearance normal, both eyes and all related structures Pupils: Equal, round and reactive pupils present EOM: EOMs intact bilaterally Neck Neck: Yes supple and No lymphadenopathy Thyroid: Thyroid normal Lymphatic: no lymphadenopathy noted Resp Effort & Inspection: normal respiratory effort and able to speak in complete sentences Auscultation: clear to auscultation bilaterally Cardio Heart sounds: S1 normal heart sound present and S2 normal heart sound present GI Palpation (GI): Soft to palpation and nontender Auscultation: normal bowel sounds Skin General skin exam: elasticity normal and turgor normal Neuro General: patient oriented x3 Cranial nerves: Yes Equal, round and reactive pupils present Speech: No Abnormal speech present Extrem General: Yes normal exam except as noted Office Procedures Cerumen Removal From which ear canal was the cerumen removed: left Removal: irrigation Notes: patient tolerated procedure well, no complications and ear canal clear 92289-Oyl Irrigation/Lavage Assessment and Plan Assessment & Plan (1) Encounter for general adult medical examination with abnormal findings: Code(s): Z00.01 - Encounter for general adult medical examination with abnormal findings (2) Excessive cerumen in left ear canal: Code(s): H61.22 - Impacted cerumen, left ear (3) Anxiety, generalized: Code(s): F41.1 - Generalized anxiety disorder (4) Panic disorder [episodic paroxysmal anxiety]: Code(s): F41.0 - Panic disorder [episodic paroxysmal anxiety] (5) Paraplegic spinal paralysis: Code(s): G82.20 - Paraplegia, unspecified (6) Hypothyroidism (acquired): Code(s): E03.9 - Hypothyroidism, unspecified (7) Paraplegic immobility syndrome: Code(s): M62.3 - Immobility syndrome (paraplegic) (8) Vitamin D deficiency: Code(s): E55.9 - Vitamin D deficiency, unspecified (9) Constipation by delayed colonic transit: Code(s): K59.01 - Slow transit constipation (10) Urinary incontinence: Code(s): R32 - Unspecified urinary incontinence Qualifiers: Urinary Incontinence type: urinary incontinence without sensory awareness Qualified Code(s): N39.42 - Incontinence without sensory awareness (11) Muscle spasm of back: Code(s): M62.830 - Muscle spasm of back Plan Patient is a 38-year-old gentleman came in for physical exam Patient is on wheelchair Due for labs Medication list reviewed Complaining of difficulty hearing, on examination his right ear is within normal limit Left ear has excessive back, that was irrigated with good result He underwent total thyroidectomy September of 2020 secondary to Graves disease Currently taking levothyroxine 175 mcg His labs revealed elevated PTH with normal calcium Patient has been discharged from endocrinology to primary care. Constipation: Still struggling with constipation he is taking Colace and Colace as needed He is to continue vitamin-D supplement as well Patient is wheelchair-bound because of paraplegic condition. Urine incontinence: Has been evaluated by urologist Baclofen 10 mg q.i.d. for chronic back spasms Follow-up 3 months Medications: New baclofen 10 mg PO BEDTIME Refilled levothyroxine 175 mcg PO DAILY 90 tabs 0RF 90 days Robbi Browne MD polyethylene glycol 3350 (Miralax) 17 grams PO DAILY 1,530 grams 0RF 90 days Robbi Browne MD sennosides-docusate sodium 8.6-50 mg (Senna Plus) 2 tab-caps (2 x 8.6-50 mg) PO BEDTIME PRN 180 caps 0RF constipation 90 days Robbi Browne MD alprazolam 0.5 mg PO DAILY 90 tabs 0RF Robbi Browne MD Coding Level of Care Code Est Pt Level 3 (84335) Est Pt Prev Care 40-64y(85028) Diagnoses Encounter for general adult medical examination with abnormal findings Z00.01 Excessive cerumen in left ear canal H61.22 Anxiety, generalized F41.1 Panic disorder [episodic paroxysmal anxiety] F41.0 Paraplegic spinal paralysis G82.20 Hypothyroidism (acquired) E03.9 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 Vitamin D deficiency E55.9 Constipation by delayed colonic transit K59.01 Urinary incontinence without sensory awareness N39.42 Urinary Incontinence type: urinary incontinence without sensory awareness Muscle spasm of back M62.830 CPT Codes Office Procedure - CPT: 49527-Meh Irrigation/Lavage ([id number])
== END 2023-12-05 09:39 | disposition home or self-care (01) ==
PROVIDERS: PCP Internal Medicine; Visit Provider Internal Medicine
DX: Z00.00 Encounter for general adult medical examination without abnormal findings (principal); G82.20 Paraplegia, unspecified; H61.22 Impacted cerumen, left ear; F41.1 Generalized anxiety disorder; F41.0 Panic disorder [episodic paroxysmal anxiety]; E03.9 Hypothyroidism, unspecified; M62.3 Immobility syndrome (paraplegic); E55.9 Vitamin D deficiency, unspecified; K59.01 Slow transit constipation; N39.42 Incontinence without sensory awareness; M62.830 Muscle spasm of back

== ENCOUNTER → 2023-12-05 09:05 | Outpatient (BNVA) | payer MEDICARE, MEDICAID, SELFPAY | PROVIDERS: PCP Internal Medicine; Visit Provider Internal Medicine | DX: Z00.01 Encounter for general adult medical examination with abnormal findings (principal); H61.22 Impacted cerumen, left ear; F41.1 Generalized anxiety disorder; F41.0 Panic disorder [episodic paroxysmal anxiety]; E03.9 Hypothyroidism, unspecified; E55.9 Vitamin D deficiency, unspecified; M62.3 Immobility syndrome (paraplegic); G82.20 Paraplegia, unspecified; K59.01 Slow transit constipation; N39.42 Incontinence without sensory awareness; M62.830 Muscle spasm of back | CPT/HCPCS: 36415; 69209; 80053; 83721; 84439; 84443; 85025; 96127; 99212; 99396 ==

== ENCOUNTER 2023-12-05 09:41 | Outpatient (REF) | payer MEDICARE, MEDICAID, SELFPAY ==
[2023-12-05 13:20] LABS: MANUAL DIFF FLAG NO
[2023-12-05 13:43] LABS: Basophils Absolute Auto 0.1 X10*3/uL (0.0-0.2); Basophils Percent Auto 0.9 % (0-2); Eosinophils Absolute Auto 0.1 X10*3/uL (0.0-0.4); Eosinophils Percent Auto 0.9 % (0-4); Hematocrit 45.5 % (42.0-52.0); Hemoglobin 14.7 g/dl (14.0-18.0); Imm Gran Abs Auto 0.01 X10*3/uL (0.00-0.03); Imm Gran Pct Auto 0.2 % (0.0-0.4); Lymphocytes Absolute Auto 1.3 X10*3/uL (1.2-4.9); Lymphocytes Percent Auto 24.2 % (20-40); Mean Corpuscular HGB Conc 32.3 g/dl (31.0-36.0); Mean Corpuscular Hemoglobin 29.5 pg (27.0-33.0); Mean Corpuscular Volume 91.4 fL (80.0-98.0); Mean Platelet Volume 11.5 fL (9.4-12.4); Monocytes Absolute Auto 0.4 X10*3/uL (0.1-1.2); Monocytes Percent Auto 7.5 % (2-11); Neutrophils Absolute Auto 3.7 x10*3/uL (2.0-8.3); Neutrophils Percent Auto 66.3 % (45-73); Platelet Count 178 X10*3/uL (160-400); Red Blood Count 4.98 X10*6/uL (4.60-5.80); Red Cell Distribution Width 13.4 % (11.0-16.0); White Blood Count 5.5 X10*3/uL (4.8-10.8)
[2023-12-05 14:02] LABS: Alanine Aminotransferase 37 U/L (0-40); Albumin Level 4.1 g/dL (3.5-5.0); Alkaline Phosphatase 54 U/L (39-117); Anion Gap 10 (12-20); Aspartate Amino Transferase 25 U/L (5-37); Bilirubin Total 0.3 mg/dL (0.0-1.0); Blood Urea Nitrogen 10 mg/dL (9-16); Calcium 9.3 mg/dL (8.4-10.2); Carbon Dioxide 27 mmol/L (22-29); Chloride 109 mmol/L (96-108); Estimated Glomerular Filt Rate > 60; Glucose Random 93 mg/dL (60-115); Potassium 4.1 mmol/L (3.3-5.1); Sodium 142 mmol/L (135-145)
[2023-12-05 14:20] LABS: TSH reflex Free T4 0.21 uIU/mL (0.32-4.0)
[2023-12-05 15:09] LABS: Free T4 (Free Thyroxine) 1.28 ng/dL (0.71-1.85)
[2023-12-06 22:08] LABS: LDL Cholesterol Direct 111 mg/dL (<100)
== END 2023-12-05 09:42 | disposition home or self-care (01) ==
LOC: HO.HMGCLDS 09:41
PROVIDERS: PCP Internal Medicine; Visit Provider Internal Medicine
DX: F41.0 Panic disorder [episodic paroxysmal anxiety] (principal)
CPT/HCPCS: 36415; 80053; 83721; 84439; 84443; 85025

== ENCOUNTER 2023-12-31 15:33 | Outpatient (AMB) | payer MEDICARE, MEDICAID, SELFPAY ==
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
[2023-12-31 15:39] VITALS: BP 128/86; PULSE 60; O2SAT 97
== END 2023-12-31 16:10 | disposition home or self-care (01) ==
PROVIDERS: PCP Internal Medicine; Visit Provider Nurse Practitioner Family
DX: K59.01 Slow transit constipation (principal); R14.0 Abdominal distension (gaseous)
CPT/HCPCS: 99203

== ENCOUNTER → 2023-12-31 15:33 | Outpatient (BNVA) | payer MEDICARE, MEDICAID, SELFPAY | PROVIDERS: PCP Internal Medicine; Visit Provider Nurse Practitioner Family | DX: K59.01 Slow transit constipation (principal); R14.0 Abdominal distension (gaseous) | CPT/HCPCS: 99202 ==

== ENCOUNTER 2024-03-11 08:35 | Outpatient (AMB) | payer MEDICARE, MEDICAID, SELFPAY ==
--- NOTE | 2024-03-11 08:38 | A.OFFPC_ITS ---
Intake Visit Reasons: 3 month telehealth visit Allergies No Known Allergies [No Known Allergies*] Allergy (Verified 03/11/24 08:39) Medication List - Last Reconciled 03/11/24 by Robbi Browne MD alprazolam 0.5 mg PO DAILY baclofen 10 mg PO BEDTIME bisacodyl (Dulcolax (bisacodyl)) 10 mg [place] DAILY PRN cholecalciferol (vitamin D3) 50 mcg PO DAILY 30 days ibuprofen mg PO levothyroxine 150 mcg PO DAILY 90 days [power wheelchair-Length of need-99 As directed] prucalopride (Motegrity) 2 mg PO DAILY sennosides-docusate sodium 8.6-50 mg (Senna Plus) 2 tab-caps (2 x 8.6-50 mg) PO BEDTIME PRN 90 days tadalafil 5 mg PO Tobacco use date assessed: 03/11/24 Dental Screening Dental Screen Date: 03/11/24 Did you have a dental visit in the last 12 months?: Yes Did you have a dental problem in the last 6 months where you did not have access to dental care?: No Was dental information given to patient?: Patient has dentist HPI 3 month telehealth visit HPI Details History of Present Illness - The patient is a 38-year-old male pres enting with a request for thyroid medication refill and concerns regarding a hydrocele. - He has an established diagnosis of hyp othyroidism for which he requires a prescription refill. - During a recent trip to [facility] he patient sought emergency medical care and was diagnosed with a hydrocele. - He reports swelling and increased firm ness in the right testicle, occasionally associated with pain. - He has an upcoming consult with a urol ogist and an ultrasound has been performed for further assessment. Review of Systems - Genitourinary: Reports firmness and sw elling in the right testicle, sometimes associated with pain. - Dermatologic: Reports need for antifun gal cream for the hand. Plan I have arranged for the patient's thyroid medication refill to be sent to the pharmacy. Considering the hydrocele, which was diagnosed during a recent emergency room visit, the patient will follow up with a urologist today and provide an ultrasound report. A blood test has been ordered, which can be performed at the hospital in conjunction with his urology appointment. Regarding his dermatological symptoms, he is continuing with the current antifungal treatment for his hand. Patient was informed and verbally consented to the use of an ambient scribe for clinic note documentation during this visit. Discussion Notes I discussed with the patient the necessity of refilling his thyroid medication, ensuring continuity of care for his hypothyroidism. We reviewed his symptoms of a hydrocele, swelling, and occasional testicular pain, which are being further evaluated by a urologist today. I emphasized the importance of bringing the ultrasound report to this appointment. We discussed his blood work to be completed at the hospital. Additionally, we reviewed his antifungal treatment for the hand, and he agreed with the proposed management plan. Patient Instructions - Ensure thyroid medication refill is ob tained from the pharmacy. - Attend the urology appointment and aisha ng the ultrasound report. - Complete the blood test at the [facility], either today or tomorrow. - Continue using the antifungal cream as directed. - Monitor symptoms and report any signif icant changes. [facility] Medical History Hyperparathyroidism Postoperative hypothyroidism Hypothyroidism Vitamin D deficiency Thyroid nodule, cold Graves disease Hyperthyroidism Encounter for general adult medical examination with abnormal findings Bladder disorder Swelling of both ankles Constipation by delayed colonic transit Anxiety, generalized Surgical History Hx of needle biopsy Hx of total thyroidectomy Family History Father No problems noted. Mother No problems noted. Son No problems noted. Social History Housing: House Alcohol intake: current Alcohol intake frequency: does not drink Patient Tobacco Use Status: Never used Tobacco e-Cigarette/Vaping Use: Currently Using service: No Current occupational status: unemployed Cognitive needs: No Hearing needs: No Vision needs: Yes Questionnaire Thrive Questionnaire Date Thrive assessed: 11/07/23 AUDIT C Alcohol Use Questionnaire (AUDIT-C) 1. How often do you have a drink containing alcohol?: Never 3. How often do you have six or more drinks on one occasion?: Never Total Score: 0 Score Reviewed/Action Taken: Yes LUIS MIGUEL-7 AMB Questionnaire LUIS MIGUEL-7 Date LUIS MIGUEL - 7 assessed: 03/11/24 Feeling nervous, anxious, or on edge: 0 = Not at all Not being able to stop or control worryin = Not at all Worrying too much about different things: 0 = Not at all Trouble relaxin = Not at all Being so restless that it is hard to sit still: 0 = Not at all Becoming easily annoyed or irritable: 0 = Not at all Feeling afraid as if something awful might happen: 0 = Not at all Total LUIS MIGUEL-7 score (0-4 normal; 5-9 mild; 10-14 moderate; 15-21 severe): 0 Source: Developed by Drs. Po Rivera, Tish Cowan, Jonathan Hahn and colleagues, with an educational ambar from [employer]. LUIS MIGUEL-7 Assessment Billing LUIS MIGUEL-7 Assessment Tool: LUIS MIGUEL-7 Assessment 38116 Physical exam (Primary Care) Tobacco/Smoking Status: Tobacco use Status Tobacco use date assessed 03/11/24 03/11/24 08:39 Patient Tobacco Use Status Never used Tobacco 03/11/24 08:39 e-Cigarette/Vaping Use Currently Using 03/11/24 08:39 Thrive Assessment: Date of Thrive Assessment Date Thrive assessed 11/07/23 03/11/24 08:39 Telehealth Telehealth Telehealth Platform: [facility] Location of provider rendering services: practice address Location of patient: address on file Patient Identification confirmed using: Name, : Yes Telehealth method: video Patient verbally consented to treatment: Yes Patient verbally consented to billing insurance company: Yes Patient informed of any privacy concerns related to visit: Yes Minutes spent on Phone/Video with Pt.: 14 Coding Level of Care Code Tele Est Pt Level 3 (16641) Diagnoses Acquired hypothyroidism E03.9 Hypothyroidism type: acquired Additional Codes LUIS MIGUEL-7 Assessment Billing - LUIS MIGUEL-7 Assessment Tool: LUIS MIGUEL-7 Assessment 17916 ([id number]) Assessment & Plan Assessment & Plan (1) Hypothyroidism: Code(s): E03.9 - Hypothyroidism, unspecified Category: Medical Qualifiers: Hypothyroidism type: acquired Qualified Code(s): E03.9 - Hypothyroidism, unspecified Plan History of Present Illness - The patient is a 38-year-old male presenting with a request for thyroid medication refill and concerns regarding a hydrocele. - He has an established diagnosis of hypothyroidism for which he requires a prescription refill. - During a recent trip to [place], the patient sought emergency medical care and was diagnosed with a hydrocele. - He reports swelling and increased firmness in the right testicle, occasionally associated with pain. - He has an upcoming consult with a urologist and an ultrasound has been performed for further assessment. Review of Systems - Genitourinary: Reports firmness and swelling in the right testicle, sometimes associated with pain. - Dermatologic: Reports need for antifungal cream for the hand. Plan I have arranged for the patient's thyroid medication refill to be sent to the pharmacy. Considering the hydrocele, which was diagnosed during a recent emergen cy room visit, the patient will follow up with a urologist today and provide an ultrasound report. A blood test has been ordered, which can be performed at the hospital in conjunction with his urology appointment. Regarding his dermatological symptoms, he is continuing with the current antifungal treatment for his hand. Patient was informed and verbally consented to the use of an ambient scribe for clinic note documentation during this visit. Discussion Notes I discussed with the patient the necessity of refilling his thyroid medication, ensuring continuity of care for his hypothyroidism. We reviewed his symptoms of a hydrocele, swelling, and occasional testicular pain, which are being further evaluated by a urologist today. I emphasized the importance of bringing the ultrasound report to this appointment. We discussed his blood work to be completed at the hospital. Additionally, we reviewed his antifungal treatment for the hand, and he agreed with the proposed management plan. Patient Instructions - Ensure thyroid medication refill is obtained from the pharmacy. - Attend the urology appointment and bring the ultrasound report. - Complete the blood test at the hospital, either today or tomorrow. - Continue using the antifungal cream as directed. - Monitor symptoms and report any significant changes. Orders: Orders TSH reflex Free T4 03/11/24 E03.9 - Hypothyroidism, unspecified Medications: Refilled levothyroxine 150 mcg PO DAILY 90 days 90 tabs 0RF
== END 2024-03-11 09:28 | disposition home or self-care (01) ==
LOC: HO.HMCC 08:35
PROVIDERS: PCP Internal Medicine; Visit Provider Internal Medicine
DX: E03.9 Hypothyroidism, unspecified (principal)

== ENCOUNTER → 2024-03-11 08:35 | Outpatient (BNVA) | payer MEDICARE, MEDICAID, SELFPAY | PROVIDERS: PCP Internal Medicine; Visit Provider Internal Medicine | DX: E03.9 Hypothyroidism, unspecified (principal) | CPT/HCPCS: 96127 ==

== ENCOUNTER 2024-03-15 15:10 | Outpatient (REF) | payer MEDICARE, MEDICAID, SELFPAY ==
[2024-03-15 17:13] LABS: TSH reflex Free T4 2.03 uIU/mL (0.32-4.0)
== END 2024-03-15 15:11 | disposition home or self-care (01) ==
LOC: HO.HMGCLDS 15:10
PROVIDERS: PCP Internal Medicine; Visit Provider Internal Medicine
DX: E03.9 Hypothyroidism, unspecified (principal)
CPT/HCPCS: 36415; 84443

== ENCOUNTER 2024-06-03 08:15 | Outpatient (AMB) | payer MEDICARE, MEDICAID, SELFPAY ==
--- NOTE | 2024-06-03 08:46 | A.OFFPC_ITS ---
Intake Visit Reasons: alprazolam refill Allergies No Known Allergies [No Known Allergies*] Allergy (Verified 06/03/24 08:46) Medication List - Last Reconciled 06/03/24 by Robbi Browne MD alprazolam 0.5 mg PO DAILY baclofen 20 mg PO BEDTIME bisacodyl (Dulcolax (bisacodyl)) 10 mg [place] DAILY PRN cholecalciferol (vitamin D3) 50 mcg PO DAILY 30 days ibuprofen mg PO ketoconazole 2% 1 appl topical DAILY 30 days levothyroxine 150 mcg PO DAILY 90 days [power wheelchair-Length of need-99 As directed] sennosides-docusate sodium 8.6-50 mg (Senna Plus) 2 tab-caps (2 x 8.6-50 mg) PO BEDTIME PRN 90 days tadalafil 5 mg PO Tobacco use date assessed: 03/11/24 Dental Screening Dental Screen Date: 03/11/24 HPI alprazolam refill HPI Details History - The patient is a 39-year-old male wit h paraplegia presenting with a request for a medication refill for alprazolam. - Management of hypothyroidism has shift ed from an geophysical prospector to our clinic following the patient's discharge from their care. - The patient actively manages constipat ion with Senna, reporting efficacy in facilitating regular bowel movements. Patient Instructions - Ensure prescription refills are schedu led within three months to avoid lapses in medication. - Continue managing constipation with Se nna as it is effective.. - Monitoring and management of hypothyro idism will continue through our clinic. Review of Systems - General: No fever no chills - Neurological: No headaches no dizziness - Ear nose throat: No sore throat no hearing difficulty no ear pain - Cardiovascular: No syncope, no chest pain, no palpitations - Gastrointestinal: No nausea vomiting or diarrhea - Endocrine: No polyuria polydipsia no heat intolerance - Genitourinary: No dysuria , no blood in urine PFSH Medical History Hyperparathyroidism Postoperative hypothyroidism Hypothyroidism Vitamin D deficiency Thyroid nodule, cold Graves disease Hyperthyroidism Encounter for general adult medical examination with abnormal findings Bladder disorder Swelling of both ankles Constipation by delayed colonic transit Anxiety, generalized Surgical History Hx of needle biopsy Hx of total thyroidectomy Family History Father No problems noted. Mother No problems noted. Son No problems noted. Social History Housing: House Alcohol intake: current Alcohol intake frequency: does not drink Patient Tobacco Use Status: Never used Tobacco e-Cigarette/Vaping Use: Currently Using service: No Current occupational status: unemployed Cognitive needs: No Hearing needs: No Vision needs: Yes Questionnaire Thrive Questionnaire Date Thrive assessed: 11/07/23 I am a: Patient What is your living situation today?: I have a steady place to live Within the past 12 months, did the food you bought not last and you didn't have the money to get more?: Sometimes True Within the past 12 months, did you worry whether your food would run out before you got money to buy more?: Sometimes True Do you have trouble paying for medicines?: No Do you have trouble getting transportation to medical appointments?: Yes Do you have trouble paying your heating and electricity bill?: Yes Do you have trouble taking care of your child, family member or friend?: No Do you have trouble with day-to-day activities such as bathing, preparing meals, shopping, managing finances, etc.?: No Are you currently unemployed and looking for a job?: No Are you interested in more education?: No Please select the resources that you would like help with: Utilities Currently or been in a relationship where the following occur: I choose not to answer THRIVE Score: 4 LUIS MIGUEL-7 AMB Questionnaire LUIS MIGUEL-7 Date LUIS MIGUEL - 7 assessed: 03/11/24 Source: Developed by Drs. Po Rivera, Tish Cowan, Jonathan Hahn and colleagues, with an educational ambar from [employer]. Physical exam (Primary Care) Tobacco/Smoking Status: Tobacco use Status Tobacco use date assessed 03/11/24 06/03/24 08:48 Patient Tobacco Use Status Never used Tobacco 06/03/24 08:48 e-Cigarette/Vaping Use Currently Using 06/03/24 08:48 Thrive Assessment: Date of Thrive Assessment Date Thrive assessed 11/07/23 06/03/24 08:48 Currently or been in a relationship where the following occur: I choose not to answer Telehealth Telehealth [facility]health [facility] Location of provider rendering services: practice address Location of patient: address on file Patient Identification confirmed using: Name, : Yes Telehealth method: video Patient verbally consented to treatment: Yes Patient verbally consented to billing insurance company: Yes Patient informed of any privacy concerns related to visit: Yes Minutes spent on Phone/Video with Pt.: 14 Coding Level of Care Code Tele Est Pt Level 3 (58152) Diagnoses Anxiety, generalized F41.1 Postoperative hypothyroidism E89.0 Constipation by delayed colonic transit K59.01 Assessment & Plan Assessment & Plan (1) Anxiety, generalized: Code(s): F41.1 - Generalized anxiety disorder Category: Medical (2) Postoperative hypothyroidism: Code(s): E89.0 - Postprocedural hypothyroidism Category: Medical (3) Constipation by delayed colonic transit: Code(s): K59.01 - Slow transit constipation Category: Medical Plan History - The patient is a 39-year-old male with paraplegia presenting with a request for a medication refill for alprazolam. - Management of hypothyroidism has shifted from an geophysical prospector to our clinic following the patient's discharge from their care. - The patient actively manages constipation with Senna, reporting efficacy in facilitating regular bowel movements. Patient Instructions - Ensure prescription refills are scheduled within three months to avoid lapses in medication. - Continue managing constipation with Senna as it is effective.. - Monitoring and management of hypothyroidism will continue through our clinic. Medications: Refilled alprazolam 0.5 mg PO DAILY 90 tabs 0RF
== END 2024-06-03 09:56 | disposition home or self-care (01) ==
LOC: HO.HMCC 08:16
PROVIDERS: PCP Internal Medicine; Visit Provider Internal Medicine
DX: K59.01 Slow transit constipation (principal); F41.1 Generalized anxiety disorder; E89.0 Postprocedural hypothyroidism

== ENCOUNTER → 2024-06-03 08:15 | Outpatient (BNVA) | payer MEDICARE, MEDICAID, SELFPAY | PROVIDERS: PCP Internal Medicine; Visit Provider Internal Medicine ==

== ENCOUNTER 2024-08-26 08:35 | Outpatient (AMB) | payer MEDICARE, MEDICAID, SELFPAY ==
--- NOTE | 2024-08-26 09:26 | A.OFFPC_ITS ---
Intake Visit Reasons: 3 M Refill Allergies No Known Allergies (No Known Allergies*) Allergy (Verified 06/03/24 08:46) Medication List - Last Reconciled 08/26/24 by Robbi Browne MD alprazolam 0.5 mg PO DAILY baclofen 20 mg PO BEDTIME bisacodyl (Dulcolax (bisacodyl)) 10 mg [place] DAILY PRN cholecalciferol (vitamin D3) 50 mcg PO DAILY 30 days ibuprofen mg PO ketoconazole 2% 1 appl topical DAILY 30 days levothyroxine 150 mcg PO DAILY 90 days [power wheelchair-Length of need-99 As directed] sennosides-docusate sodium 8.6-50 mg (Senna Plus) 2 tab-caps (2 x 8.6-50 mg) PO BEDTIME PRN 90 days tadalafil 5 mg PO Tobacco use date assessed: 03/11/24 Dental Screening Dental Screen Date: 03/11/24 HPI 3 M Refill HPI Details History - The patient is a 39-year-old male pres enting with a need for medication refill and management of chronic conditions. - Anxiety: The patient is taking alprazo stover for anxiety management. - Paraplegia: The patient is paraplegic and has a neurogenic bladder. - Hypothyroidism: The patient has a hist ory of hypothyroidism, with thyroid function tests last conducted in March. - Chronic back pain: The patient is curr ently attending [facility] for chronic back pain management. Problem List - Anxiety - Paraplegia - Neurogenic bladder - Hypothyroidism - Chronic back pain - Preventative care: Thyroid function te st Patient Instructions - Refill alprazolam prescription as need ed. - Schedule a thyroid function test at [facility]. - Continue attending appointments at [facility] for back pain management. - Follow up in three months for medicati on refill. Review of Systems - General: No fever no chills - Neurological: No headaches no dizziness - Ear nose throat: No sore throat no hearing difficulty no ear pain - Cardiovascular: No syncope, no chest pain, no palpitations - Gastrointestinal: No nausea vomiting or diarrhea [facility] Medical History Hyperparathyroidism Postoperative hypothyroidism Hypothyroidism Vitamin D deficiency Thyroid nodule, cold Graves disease Hyperthyroidism Encounter for general adult medical examination with abnormal findings Bladder disorder Swelling of both ankles Constipation by delayed colonic transit Anxiety, generalized Surgical History Hx of needle biopsy Hx of total thyroidectomy Family History Father No problems noted. Mother No problems noted. Son No problems noted. Social History Housing: House Alcohol intake: current Alcohol intake frequency: does not drink Patient Tobacco Use Status: Never used Tobacco e-Cigarette/Vaping Use: Currently Using service: No Current occupational status: unemployed Cognitive needs: No Hearing needs: No Vision needs: Yes Questionnaire Thrive Questionnaire Date Thrive assessed: 11/07/23 I am a: Patient What is your living situation today?: I have a steady place to live Within the past 12 months, did the food you bought not last and you didn't have the money to get more?: Sometimes True Within the past 12 months, did you worry whether your food would run out before you got money to buy more?: Sometimes True Do you have trouble paying for medicines?: No Do you have trouble getting transportation to medical appointments?: Yes Do you have trouble paying your heating and electricity bill?: Yes Do you have trouble taking care of your child, family member or friend?: No Do you have trouble with day-to-day activities such as bathing, preparing meals, shopping, managing finances, etc.?: No Are you currently unemployed and looking for a job?: No Are you interested in more education?: No Please select the resources that you would like help with: Utilities Currently or been in a relationship where the following occur: I choose not to answer THRIVE Score: 4 AUDIT C Alcohol Use Questionnaire (AUDIT-C) 3. How often do you have six or more drinks on one occasion?: Never Total Score: 0 LUIS MIGUEL-7 AMB Questionnaire LUIS MIGUEL-7 Date LUIS MIGUEL - 7 assessed: 03/11/24 Source: Developed by Drs. Po Rivera, Tish Cowan, Jonathan Hahn and colleagues, with an educational ambar from [employer]. Physical exam (Primary Care) Tobacco/Smoking Status: Tobacco use Status Tobacco use date assessed 03/11/24 08/26/24 09:26 Patient Tobacco Use Status Never used Tobacco 08/26/24 09:26 e-Cigarette/Vaping Use Currently Using 08/26/24 09:26 Thrive Assessment: Date of Thrive Assessment Date Thrive assessed 11/07/23 08/26/24 09:26 Currently or been in a relationship where the following occur: I choose not to answer Telehealth Telehealth Telehealth Platform: [facility] Location of provider rendering services: practice address Location of patient: address on file Patient Identification confirmed using: Name, : Yes Telehealth method: video Patient verbally consented to treatment: Yes Patient verbally consented to billing insurance company: Yes Patient informed of any privacy concerns related to visit: Yes Minutes spent on Phone/Video with Pt.: 13 Coding Level of Care Code Tele Est Pt Level 3 (03971) Diagnoses Anxiety, generalized F41.1 Postoperative hypothyroidism E89.0 Assessment & Plan Assessment & Plan (1) Anxiety, generalized: Code(s): F41.1 - Generalized anxiety disorder Category: Medical (2) Postoperative hypothyroidism: Code(s): E89.0 - Postprocedural hypothyroidism Category: Medical Plan History - The patient is a 39-year-old male presenting with a need for medication refill and management of chronic conditions. - Anxiety: The patient is taking alprazolam for anxiety management. - Paraplegia: The patient is paraplegic and has a neurogenic bladder. - Hypothyroidism: The patient has a history of hypothyroidism, with thyroid function tests last conducted in March. - Chronic back pain: The patient is currently attending [facility] for chronic back pain management. Problem List - Anxiety - Paraplegia - Neurogenic bladder - Hypothyroidism - Chronic back pain - Preventative care: Thyroid function test Patient Instructions - Refill alprazolam prescription as needed. - Schedule a thyroid function test at your convenience. - Continue attending appointments at [facility] for back pain management. - Follow up in three months for medication refill. Orders: Orders Comprehensive Met. Panel Today E89.0 - Postprocedural hypothyroidism, F41.1 - Generalized anxiety disorder Complete Blood Count Auto Diff Today E89.0 - Postprocedural hypothyroidism, F41.1 - Generalized anxiety disorder TSH reflex Free T4 Today E89.0 - Postprocedural hypothyroidism, F41.1 - Generalized anxiety disorder Medications: Refilled alprazolam 0.5 mg PO DAILY 90 tabs 0RF levothyroxine 150 mcg PO DAILY 90 tabs 0RF 90 days
== END 2024-08-26 09:29 | disposition home or self-care (01) ==
LOC: HO.HMCC 08:35
PROVIDERS: PCP Internal Medicine; Visit Provider Internal Medicine
DX: F41.1 Generalized anxiety disorder (principal); E89.0 Postprocedural hypothyroidism

== ENCOUNTER → 2024-08-26 08:35 | Outpatient (BNVA) | payer MEDICARE, MEDICAID, SELFPAY | PROVIDERS: PCP Internal Medicine; Visit Provider Internal Medicine ==

== ENCOUNTER 2024-09-09 15:17 | Outpatient (REF) | payer MEDICARE, MEDICAID, SELFPAY ==
[2024-09-09 16:16] LABS: MANUAL DIFF FLAG NO
[2024-09-09 16:19] LABS: Hematocrit 44.8 % (42.0-52.0); Hemoglobin 14.5 g/dl (14.0-18.0); Imm Gran Abs Auto 0.01 X10*3/uL (0.00-0.03); Imm Gran Pct Auto 0.2 % (0.0-0.4); Lymphocytes Absolute Auto 1.6 X10*3/uL (1.2-4.9); Mean Corpuscular HGB Conc 32.4 g/dl (31.0-36.0); Mean Corpuscular Hemoglobin 29.2 pg (27.0-33.0); Mean Corpuscular Volume 90.3 fL (80.0-98.0); NRBC Abs Auto 0.000 X10*3/uL (0.0-0.012); NRBC Pct Auto 0.0 /100WBC (0.0-0.2); Platelet Count 169 X10*3/uL (160-400); Red Blood Count 4.96 X10*6/uL (4.60-5.80); White Blood Count 6.5 X10*3/uL (4.8-10.8)
[2024-09-09 17:10] LABS: Alanine Aminotransferase 24 U/L (0-40); Albumin Level 4.3 g/dL (3.5-5.0); Alkaline Phosphatase 58 U/L (39-117); Anion Gap 10 (12-20); Aspartate Amino Transferase 25 U/L (5-37); Blood Urea Nitrogen 10 mg/dL (9-16); Calcium 8.8 mg/dL (8.4-10.2); Carbon Dioxide 27 mmol/L (22-29); Chloride 109 mmol/L (96-108); Estimated Glomerular Filt Rate > 60; Potassium 3.9 mmol/L (3.3-5.1); Sodium 142 mmol/L (135-145); Total Protein 6.9 g/dL (6.5-8.0)
== END 2024-09-09 15:18 | disposition home or self-care (01) ==
LOC: HO.HMGCLDS 15:17
PROVIDERS: PCP Internal Medicine; Visit Provider Internal Medicine
DX: F41.1 Generalized anxiety disorder (principal); E89.0 Postprocedural hypothyroidism
CPT/HCPCS: 36415; 80053; 84443; 85025

== ENCOUNTER 2024-09-30 08:07 | Outpatient (AMB) | payer MEDICARE, MEDICAID, SELFPAY ==
--- NOTE | 2024-09-30 08:39 | MHC.PC.OV ---
Intake Visit Reasons: requesting letter Allergies No Known Allergies (No Known Allergies*) Allergy (Verified 06/03/24 08:46) Medication List - Last Reconciled 09/30/24 by Robbi Browne MD alprazolam 0.5 mg PO DAILY baclofen 20 mg PO BEDTIME bisacodyl (Dulcolax (bisacodyl)) 10 mg [place] DAILY PRN cholecalciferol (vitamin D3) 50 mcg PO DAILY 30 days ibuprofen mg PO ketoconazole 2% 1 appl topical DAILY 30 days levothyroxine 150 mcg PO DAILY 90 days [power wheelchair-Length of need-99 As directed] sennosides-docusate sodium 8.6-50 mg (Senna Plus) 2 tab-caps (2 x 8.6-50 mg) PO BEDTIME PRN 90 days tadalafil 5 mg PO Tobacco use date assessed: 03/11/24 Dental Screening Dental Screen Date: 03/11/24 HPI requesting letter HPI Details History - The patient is a 39-year-old male with immobility syndrome presenting with inquiries regarding a stair lift for assistance. The patient reported difficulty with mobility due to the stairs in his home, which has about 20 steps the first-floor bedroom and the second-floor bathroom. This issue necessitates the installation of a stair lift for better management of daily activities. - The patient mentioned that a nurse informed him about the possibility of insurance coverage for a stair lift under specific conditions. The cost of the equipment ranges from $2,000 to $5,000, and there is a need to assess insurance approval for half of the kong. - Furthermore, the patient inquired about the necessity for testosterone level testing , Patient was notified to have this discuss this matter with his urologist. Social History: - The patient resides in an owned house with a staircase that separates his bedroom on the first floor from the bathroom on the second floor. Problem List - Mobility assistance inquiry - Testosterone level inquiry Patient Instructions - Contact your insurance company to verify potential coverage for a stair lift. - Discuss testosterone level testing with your urologist. - Follow up with the nurse for further assistance regarding the stair lift process. Review of Systems - General: No fever no chills - Neurological: No headaches no dizziness - Ear nose throat: No sore throat no hearing difficulty no ear pain - Cardiovascular: No syncope, no chest pain, no palpitations - Gastrointestinal: No nausea vomiting or diarrhea PFSH Medical History Hyperparathyroidism Postoperative hypothyroidism Hypothyroidism Vitamin D deficiency Thyroid nodule, cold Graves disease Hyperthyroidism Encounter for general adult medical examination with abnormal findings Bladder disorder Swelling of both ankles Constipation by delayed colonic transit Anxiety, generalized Surgical History Hx of needle biopsy Hx of total thyroidectomy Family History Father No problems noted. Mother No problems noted. Son No problems noted. Social History Housing: House Alcohol intake: current Alcohol intake frequency: does not drink Patient Tobacco Use Status: Never used Tobacco e-Cigarette/Vaping Use: Currently Using service: No Current occupational status: unemployed Cognitive needs: No Hearing needs: No Vision needs: Yes Questionnaire Thrive Questionnaire Date Thrive assessed: 11/07/23 LUIS MIGUEL-7 AMB Questionnaire LUIS MIGUEL-7 Date LUIS MIGUEL - 7 assessed: 03/11/24 Source: Developed by Drs. Po Rivera, Tish Cowan, Jonathan Hahn and colleagues, with an educational ambar from [employer]. Physical exam (Primary Care) Tobacco/Smoking Status: Tobacco use Status Tobacco use date assessed 03/11/24 09/30/24 08:40 Patient Tobacco Use Status Never used Tobacco 09/30/24 08:40 e-Cigarette/Vaping Use Currently Using 09/30/24 08:40 Thrive Assessment: Date of Thrive Assessment Date Thrive assessed 11/07/23 09/30/24 08:40 Telehealth Telehealth Telehealth Platform: 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 The patient reported difficulty with mobility due to the stairs in his home, which has about 20 steps the first-floor bedroom and the second-floor bathroom. This issue necessitates the installation of a stair lift for better management of daily activities. - The patient mentioned that a nurse informed him about the possibility of insurance coverage for a stair lift under specific conditions. The cost of the equipment ranges from $2,000 to $5,000, and there is a need to assess insurance approval for half of the kong. - Furthermore, the patient inquired about the necessity for testosterone level testing , Patient was notified to have this discuss this matter with his urologist. Social History: - The patient resides in an owned house with a staircase that separates his bedroom on the first floor from the bathroom on the second floor. Problem List - Mobility assistance inquiry - Testosterone level inquiry Patient Instructions - Contact your insurance company to verify potential coverage for a stair lift. - Discuss testosterone level testing with your urologist. - Follow up with the nurse for further assistance regarding the stair lift process.
== END 2024-09-30 11:07 | disposition home or self-care (01) ==
LOC: HO.HMCC 08:07
PROVIDERS: PCP Internal Medicine; Visit Provider Internal Medicine
DX: M62.3 Immobility syndrome (paraplegic) (principal)

== ENCOUNTER 2025-01-21 15:02 | Outpatient (AMB) | payer MEDICARE, MEDICAID, SELFPAY ==
[2025-01-21 15:03] VITALS: BP 118/76; PULSE 80; O2SAT 96; BMI 25.5
--- NOTE | 2025-01-21 15:03 | MHC.PC.OV ---
Vital Signs 01/21/25 15:03 Height 5 ft 8 in Weight 168 lb BMI 25.5 BP 118/76 Blood Pressure Location Lt brachial Position Sitting Pulse 80 Pulse Source Pulse Oximeter Pulse Oximetry (%) 96 Intake Visit Reasons: med refill Allergies No Known Allergies (No Known Allergies*) Allergy (Verified 01/21/25 15:03) Medication List - Last Reconciled 01/21/25 by Robbi Browne MD alprazolam 0.5 mg PO DAILY baclofen 20 mg PO BEDTIME bisacodyl (Dulcolax (bisacodyl)) 10 mg [place] DAILY PRN cholecalciferol (vitamin D3) 50 mcg PO DAILY 30 days ibuprofen mg PO ketoconazole 2% 1 appl topical DAILY 30 days levothyroxine 150 mcg PO DAILY 90 days [power wheelchair-Length of need-99 As directed] sennosides-docusate sodium 8.6-50 mg (Senna Plus) 2 tab-caps (2 x 8.6-50 mg) PO BEDTIME PRN 90 days tadalafil 5 mg PO Tobacco use date assessed: 03/11/24 Dental Screening Dental Screen Date: 03/11/24 HPI med refill HPI Details History of Present Illness The patient is a 39-year-old male presenting for medication refills and management of chronic constipation. Chronic Constipation: - The patient presents with ongoing constipation, having bowel movements every 3 to 4 days. - He has tried increasing water and fiber intake without relief. - He was seen by a washer and capper machine operator in December, who prescribed laxatives that were not effective. - He reports that the only medication that works is dulcolax and senna , and he is currently taking Senna, up to 4 tablets. - The patient recalls discussing Linzess a few years ago but does not remember taking it. Quadriplegia: - The patient has a history - He is wheelchair-bound and requires assistance with all personal care needs. - He is in a GROUP INSURANCE SPECIALIST program and requires bowel stimulation assistance. Back Pain & Muscle Spasms: - The patient takes baclofen, thru pain managment , for back pain or muscle spasms. Anxiety: - The patient is prescribed alprazolam, for which he is requesting a refill. Medical History: - Quadriplegia (described as theraplgic syndrome ) - Chronic constipation - Back pain and muscle spasms - Anxiety Medications: - Baclofen once a day for back pain or spasms - Senna, up to 4 tablets, for constipation - Zocox (as pronounced) for constipation - Alprazolam Social History: - Functional Status: The patient is wheelchair-bound and requires assistance with all personal needs. - The patient is enrolled in a GROUP INSURANCE SPECIALIST program and requires documentation for assistance with bowel movements. Problem List - Chronic constipation - Quadriplegia - Back pain and muscle spasms - Anxiety - Preventative care: Influenza vaccination Plan - Start Linzess 72 mg to be taken daily for chronic constipation. - A 30-day supply will be sent to the pharmacy. - The patient will follow up via message in approximately three weeks to report on the efficacy and any side effects of Linzess, at which point the dose may be increased to 145 mg if needed. - A prescription for alprazolam will be sent. for next 3 M - Administered influenza vaccine in the office today. - A letter will be provided for the patient's GROUP INSURANCE SPECIALIST program to document the need for assistance with bowel care. - The patient will follow up in the office in three months. Review of Systems - General: No fever no chills - Neurological: No headaches no dizziness - Ear nose throat: No sore throat no hearing difficulty no ear pain - Cardiovascular: No syncope, no chest pain, no palpitations - Gastrointestinal: No nausea vomiting or diarrhea Physical Exam General: No acute distress, sitting in wheel chair HEENT: No acute findings Neck: Supple Respiratory system: Able to talk in full sentences, no audible wheeze Cardiovascular: S1-S2 regular in rate and rhythm Gastrointestinal: soft nontender Skin: Normal turgor PFSH Medical History Hyperparathyroidism Postoperative hypothyroidism Hypothyroidism Vitamin D deficiency Thyroid nodule, cold Graves disease Hyperthyroidism Encounter for general adult medical examination with abnormal findings Bladder disorder Swelling of both ankles Constipation by delayed colonic transit Anxiety, generalized Surgical History Hx of needle biopsy Hx of total thyroidectomy Family History Father No problems noted. Mother No problems noted. Son No problems noted. Social History Housing: House Alcohol intake: current Alcohol intake frequency: does not drink Patient Tobacco Use Status: Never used Tobacco e-Cigarette/Vaping Use: Currently Using service: No Current occupational status: unemployed Cognitive needs: No Hearing needs: No Vision needs: Yes Questionnaire Thrive Questionnaire Date Thrive assessed: 11/07/23 I am a: Patient What is your living situation today?: I have a steady place to live Within the past 12 months, did the food you bought not last and you didn't have the money to get more?: Sometimes True Within the past 12 months, did you worry whether your food would run out before you got money to buy more?: Sometimes True Do you have trouble paying for medicines?: No Do you have trouble getting transportation to medical appointments?: Yes Do you have trouble paying your heating and electricity bill?: Yes Do you have trouble taking care of your child, family member or friend?: No Do you have trouble with day-to-day activities such as bathing, preparing meals, shopping, managing finances, etc.?: No Are you currently unemployed and looking for a job?: No Are you interested in more education?: No Please select the resources that you would like help with: Utilities Currently or been in a relationship where the following occur: I choose not to answer THRIVE Score: 4 LUIS MIGUEL-7 AMB Questionnaire LUIS MIGUEL-7 Date LUIS MIGUEL - 7 assessed: 03/11/24 Source: Developed by Drs. oP Rivera, Tish Cowan, Jonathan Hahn and colleagues, with an educational ambar from [employer]. Physical exam (Primary Care) Vital Signs: Last Vital Signs Pulse 80 01/21/25 15:03 BP 118/76 01/21/25 15:03 Pulse Ox 96 01/21/25 15:03 BMI result Body Mass Index 25.5 Tobacco/Smoking Status: Tobacco use Status Tobacco use date assessed 03/11/24 01/21/25 15:03 Patient Tobacco Use Status Never used Tobacco 01/21/25 15:03 e-Cigarette/Vaping Use Currently Using 01/21/25 15:03 Thrive Assessment: Date of Thrive Assessment Date Thrive assessed 11/07/23 01/21/25 15:03 Currently or been in a relationship where the following occur: I choose not to answer Office Procedures Flu Questionnaire Does the patient have a severe egg allergy?: No Does the patient have severe life threatening allergies?: No Does the patient have a fever or illness today?: No Has the patient ever had Guillain-[place] Syndrome?: No Has the patient ever had any past reaction to a flu shot?: No Immunizations Fluarix [id number] (PF) 45 mcg (15 mcg x 3)/0.5 mL IM syringe Performing Provider: Robbi Browne MD Performing Location: [facility] Administered by: Matt Hernandez MA on 01/21/25 15:37 Dose Route Admin Location Dispensed Lot Number Expiration Date NDC Blister Rust Eradicator 0.5 mL IM Right Deltoid 0.5 mL [id number] 09/06/25 [id number] Shotlst VIS Given Date VIS Provided VIS Publication Date 01/21/25 Single Vaccine 24 Eligibility Eligibility Date Funding Source Not [facility] Eligible 01/21/25 Private Coding Level of Care Code Est Pt Level 4 (89132) Complex EM visit Add On G2211 Diagnoses 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 Anxiety, generalized F41.1 Panic disorder [episodic paroxysmal anxiety] F41.0 Hypothyroidism (acquired) E03.9 Constipation by delayed colonic transit K59.01 Muscle spasm of back M62.830 Time Spent (min) 35 Comment face to face, letter, coordination of care Assessment & Plan Assessment & Plan (1) Paraplegic immobility syndrome: Code(s): M62.3 - Immobility syndrome (paraplegic) Category: Medical (2) Anxiety, generalized: Code(s): F41.1 - Generalized anxiety disorder Category: Medical (3) Panic disorder [episodic paroxysmal anxiety]: Code(s): F41.0 - Panic disorder [episodic paroxysmal anxiety] Category: Medical (4) Hypothyroidism (acquired): Code(s): E03.9 - Hypothyroidism, unspecified Category: Medical (5) Constipation by delayed colonic transit: Code(s): K59.01 - Slow transit constipation Category: Medical (6) Muscle spasm of back: Code(s): M62.830 - Muscle spasm of back Category: Medical Plan Chronic Constipation: - The patient presents with ongoing constipation, having bowel movements every 3 to 4 days. - He has tried increasing water and fiber intake without relief. - He was seen by a washer and capper machine operator in December, who prescribed laxatives that were not effective. - He reports that the only medication that works is dulcolax and senna , and he is currently taking Senna, up to 4 tablets. - The patient recalls discussing Linzess a few years ago but does not remember taking it. Quadriplegia: - The patient has a history - He is wheelchair-bound and requires assistance with all personal care needs. - He is in a [employer] INS[employer]IST program and requires bowel stimulation assistance. Back Pain & Muscle Spasms: - The patient takes baclofen, thru pain managment , for back pain or muscle spasms. Anxiety: - The patient is prescribed alprazolam, for which he is requesting a refill. Medical History: - Quadriplegia (described as theraplgic syndrome ) - Chronic constipation - Back pain and muscle spasms - Anxiety Medications: - Baclofen once a day for back pain or spasms - Senna, up to 4 tablets, for constipation - Zocox (as pronounced) for constipation - Alprazolam Social History: - Functional Status: The patient is wheelchair-bound and requires assistance with all personal needs. - The patient is enrolled in a GROUP INSURANCE SPECIALIST program and requires documentation for assistance with bowel movements. Problem List - Chronic constipation - Quadriplegia - Back pain and muscle spasms - Anxiety - Preventative care: Influenza vaccination Plan - Start Linzess 72 mg to be taken daily for chronic constipation. - A 30-day supply will be sent to the pharmacy. - The patient will follow up via message in approximately three weeks to report on the efficacy and any side effects of Linzess, at which point the dose may be increased to 145 mg if needed. - A prescription for alprazolam will be sent. for next 3 M - Administered influenza vaccine in the office today. - A letter will be provided for the patient's GROUP INSURANCE SPECIALIST program to document the need for assistance with bowel care. - The patient will follow up in the office in three months. Orders: Orders Influenza [id number] Immunization 01/21/25 Z23 - Encounter for immunization Medications: New linaclotide (Linzess) 72 mcg PO DAILY 30 caps 0RF Refilled alprazolam 0.5 mg PO DAILY 90 tabs 0RF
== END 2025-01-21 15:54 | disposition home or self-care (01) ==
LOC: HO.HMCC 15:03
PROVIDERS: PCP Internal Medicine; Visit Provider Internal Medicine
DX: Z23 Encounter for immunization (principal)

== ENCOUNTER → 2025-01-21 15:02 | Outpatient (BNVA) | payer MEDICARE, MEDICAID, SELFPAY | PROVIDERS: PCP Internal Medicine; Visit Provider Internal Medicine | DX: F41.1 Generalized anxiety disorder (principal); F41.0 Panic disorder [episodic paroxysmal anxiety]; E03.9 Hypothyroidism, unspecified; K59.01 Slow transit constipation; M62.830 Muscle spasm of back; K59.09 Other constipation; M54.9 Dorsalgia, unspecified; F41.9 Anxiety disorder, unspecified; M62.3 Immobility syndrome (paraplegic); Z23 Encounter for immunization | CPT/HCPCS: 90471; 90656; 99212 ==